=== PATIENT | female | born 1995 | race African-American/Black ===

== ENCOUNTER 2016-09-04 00:53 | Emergency (ER) | END 2016-09-04 02:47 | disposition left against medical advice (07) | LOC: EDSEX → ER 00:53 | DX: Z53.21 Procedure and treatment not carried out due to patient leaving prior to being seen by health care provider (principal) ==

== ENCOUNTER 2017-07-22 14:23 | Emergency (ER) | payer SELFPAY ==
[2017-07-22] MEDS ORDERED: KETOROLAC TROMETHAMINE INJ/PF 30 MG/1 ML SDV IV ONE (15:30)
[2017-07-22] MEDS ORDERED: NORMAL SALINE 1000 ML 1,000 ML IV ONE (15:30)
[2017-07-22] MEDS ORDERED: PROCHLORPERAZINE EDISYLATE INJ 10 MG/2 ML VIAL IV ONE (15:30)
[2017-07-22] MEDS ORDERED: DIPHENHYDRAMINE HCL 50 MG/ML VIAL IV ONE (15:30)
--- NOTE | 2017-07-22 15:32 | ER Document Report ---
ED Headache - General Chief Complaint: Headache Stated Complaint: HEADACHE,WEAKNESS Time Seen by Provider: 07/22/17 15:26 Mode of Arrival: Ambulatory Information source: Patient Notes: Patient presents complaining of left-sided headache pain that radiates to the back of her scalp. Patient states headache started yesterday and has gradually worsened today. Patient denies any fever, nausea or vomiting. Patient denies any change in vision. Patient does report photophobia. TRAVEL OUTSIDE OF THE [place] IN LAST 30 DAYS: No - HPI Patient complains to provider of: Headache Onset: Yesterday Onset was: Gradual Timing: Worse Quality of pain: Achy Pain Level: 5 Context: denies: Head injury Associated symptoms: Photophobia. denies: Chills, Confusion, Fever, Lightheaded , Nausea/vomiting, Speech problems, Stiff neck Exacerbated by: Light Similar symptoms previously: No Recently seen / treated by doctor: No - Related Data Allergies/Adverse Reactions: No Known Allergies Allergy (Unverified 09/04/16 01:12) Past Medical History - General Information source: Patient - Social History Smoking Status: Never Smoker Frequency of alcohol use: None Drug Abuse: None Occupation: none Lives with: Family Family History: Reviewed & Not Pertinent Patient has suicidal ideation: No Patient has homicidal ideation: No - Medical History Medical History: Other - anemia Neurological Medical History: Denies: Hx Migraine Renal/ Medical History: Denies: Hx Peritoneal Dialysis Surgical Hx: Negative Review of Systems - Review of Systems Constitutional: Malaise. denies: Fever, Recent illness EENT: No symptoms reported. denies: Blurred vision, Double vision Cardiovascular: No symptoms reported Respiratory: No symptoms reported. denies: Cough Gastrointestinal: No symptoms reported. denies: Nausea, Vomiting Genitourinary: No symptoms reported Female Genitourinary: No symptoms reported Musculoskeletal: No symptoms reported. denies: Back pain, Neck pain Skin: No symptoms reported. denies: Rash Hematologic/Lymphatic: No symptoms reported Neurological/Psychological: Headaches Physical Exam - Vital signs Vitals: Temp Pulse Resp BP Pulse Ox 98.3 F 89 16 117/67 100 07/22/17 14:37 07/22/17 14:37 07/22/17 14:37 07/22/17 14:37 07/22/17 14:37 - General General appearance: Appears well, Alert In distress: None - HEENT Head: Normocephalic, Atraumatic Eyes: Normal Conjunctiva: Normal Extraocular movements intact: Yes Eyelashes: Normal Pupils: PERRL Ears: Normal Nasal: Normal Mouth/Lips: Normal Mucous membranes: Normal Pharynx: Normal Neck: Normal, Supple. No: Lymphadenopathy, Meningismus, Neck mass - Respiratory Respiratory status: No respiratory distress Chest status: Nontender Breath sounds: Normal. No: Rales, Rhonchi, Stridor, Wheezing Chest palpation: Normal - Cardiovascular Rhythm: Regular Heart sounds: S1 appreciated, S2 appreciated Murmur: No - Back Back: Normal, Nontender - Extremities General upper extremity: Normal inspection, Normal ROM General lower extremity: Normal inspection, Normal ROM - Neurological Neuro grossly intact: Yes Cognition: Normal Orientation: AAOx4 Kandice Coma Scale Eye Opening: Spontaneous Kandice Coma Scale Verbal: Oriented Theriot Coma Scale Motor: Obeys Commands Kandice Coma Scale Total: 15 Speech: Normal Cranial nerves: Normal. No: Facial palsy Cerebellar coordination: Normal Motor strength normal: LUE, RUE, LLE, RLE - Psychological Associated symptoms: Normal affect, Normal mood - Skin Skin Temperature: Warm Skin Moisture: Dry Skin Color: Normal Course - Re-evaluation Re-evalutation: 07/22/17 17:49 Patient sleeping, arouses easily to voice. Patient states headache pain is resolved. - Vital Signs Vital signs: Temp Pulse Resp BP Pulse Ox 98.3 F 96 16 105/61 100 07/22/17 14:37 07/22/17 18:29 07/22/17 18:29 07/22/17 18:29 07/22/17 18:29 - Laboratory Result Diagrams: 07/22/17 16:50 Laboratory results interpreted by me: 07/22/17 16:50 RBC 5.42 H MCV 70 L MCH 22.5 L RDW 14.8 H Labs- Entire Visit 07/22/17 16:50 WBC 6.0 RBC 5.42 H Hgb 12.2 Hct 38.1 MCV 70 L MCH 22.5 L MCHC 32.0 RDW 14.8 H Plt Count 318 Seg Neutrophils % 53.6 Lymphocytes % 35.3 Monocytes % 7.7 Eosinophils % 2.7 Basophils % 0.7 Absolute Neutrophils 3.2 Absolute Lymphocytes 2.1 Absolute Monocytes 0.5 Absolute Eosinophils 0.2 Absolute Basophils 0.0 Discharge - Discharge Clinical Impression: Headache Qualifiers: Headache type: unspecified Headache chronicity pattern: acute headache Intractability: not intractable Qualified Code(s): R51 - Headache Condition: Stable Disposition: HOME, SELF-CARE Instructions: Intravenous Compazine for Headaches ([facility]), Use of Diphenhydramine , Headache ([facility]), Toradol Injection ([facility]) Additional Instructions: Return immediately for any new or worsening symptoms Followup with your primary care provider, call tomorrow to make a followup appointment Referrals: [facility] [Provider Group] - Follow up as needed
[2017-07-22 17:15] LABS: ABSOLUTE EOSINOPHILS # (AUTO) 0.2 10^3/uL (0.0-0.6); ABSOLUTE LYMPHOCYTES (AUTO) 2.1 10^3/uL (0.5-4.7); ABSOLUTE MONOCYTES (AUTO) 0.5 10^3/uL (0.1-1.4); ABSOLUTE NEUT (AUTO) 3.2 10^3/uL (1.7-8.2); BASOPHILS % (AUTO) 0.7 % (0-2); EOSINOPHILS % (AUTO) 2.7 % (0-6); HEMATOCRIT 38.1 % (36.0-47.0); HEMOGLOBIN 12.2 g/dL (12.0-15.5); HGB HCT DIFFERENCE -1.5; LYMPHOCYTES % (AUTO) 35.3 % (13-45); MEAN CORPUSCULAR HEMOGLOBIN 22.5 pg (27.0-33.4); MEAN CORPUSCULAR VOLUME 70 fl (80-97); MONOCYTES % (AUTO) 7.7 % (3-13); RED BLOOD COUNT 5.42 10^6/uL (3.72-5.28); RED CELL DISTRIBUTION WIDTH 14.8 % (11.5-14.0); SEGMENTED NEUTROPHILS % (AUTO) 53.6 % (42-78)
[2017-07-22 18:30] VITALS: BP 105/61
== END 2017-07-22 18:39 | disposition home or self-care (01) ==
LOC: ER 14:23
DX: R51 Headache (principal); R53.1 Weakness
CPT/HCPCS: 99284; 96361; 96374; 96375; 36415; 85025; J1200; J1885; J0780; J7030

== ENCOUNTER 2017-10-30 23:27 | Emergency (ER) | payer SELFPAY ==
[2017-10-31 00:46] LABS: ABSOLUTE LYMPHOCYTES (AUTO) 0.6 10^3/uL (0.5-4.7); ABSOLUTE MONOCYTES (AUTO) 0.5 10^3/uL (0.1-1.4); ABSOLUTE NEUT (AUTO) 10.6 10^3/uL (1.7-8.2); BASOPHILS % (AUTO) 0.3 % (0-2); EOSINOPHILS % (AUTO) 0.2 % (0-6); HEMATOCRIT 37.9 % (36.0-47.0); HEMOGLOBIN 11.9 g/dL (12.0-15.5); LYMPHOCYTES % (AUTO) 5.1 % (13-45); MEAN CORPUSCULAR HEMOGLOBIN 22.2 pg (27.0-33.4); MEAN CORPUSCULAR HGB CONC 31.3 g/dL (32.0-36.0); MEAN CORPUSCULAR VOLUME 71 fl (80-97); PLATELET COUNT 302 10^3/uL (150-450); RED BLOOD COUNT 5.34 10^6/uL (3.72-5.28); RED CELL DISTRIBUTION WIDTH 14.2 % (11.5-14.0); SEGMENTED NEUTROPHILS % (AUTO) 90.4 % (42-78); TOTAL CELLS COUNTED % (AUTO) 100 %; WHITE BLOOD COUNT 11.7 10^3/uL (4.0-10.5)
[2017-10-31 01:05] LABS: ALANINE AMINOTRANSFERASE 17 U/L (9-52); ALBUMIN 4.3 g/dL (3.5-5.0); ALKALINE PHOSPHATASE 105 U/L (38-126); ANION GAP 10 (5-19); ASPARTATE AMINO TRANSFERASE 23 U/L (14-36); BILIRUBIN,DIRECT 0.4 mg/dL (0.0-0.4); BLOOD UREA NITROGEN 10 mg/dL (7-20); CALCIUM 9.8 mg/dL (8.4-10.2); CARBON DIOXIDE 24 mmol/L (22-30); CHLORIDE 109 mmol/L (98-107); GLUCOSE 107 mg/dL (75-110); LIPASE 75.2 U/L (23-300); POTASSIUM 4.2 mmol/L (3.6-5.0); SODIUM 143.4 mmol/L (137-145); TOTAL PROTEIN 7.5 g/dL (6.3-8.2)
[2017-10-31 01:11] LABS: APPEARANCE,URINE SLIGHTLY-CLOUDY; BILIRUBIN,URINE NEGATIVE (NEGATIVE); COLOR,URINE YELLOW; GLUCOSE, URINE NEGATIVE (NEGATIVE); KETONES,URINE TRACE mg/dL (NEGATIVE); LEUKOCYTE ESTERASE,URINE NEGATIVE (NEGATIVE); NITRITE,URINE NEGATIVE (NEGATIVE); PROTEIN,URINE NEGATIVE (NEGATIVE); URINE SPECIFIC GRAVITY 1.029; UROBILINOGEN,URINE NEGATIVE mg/dL (<2.0)
[2017-10-31] MEDS ORDERED: ONDANSETRON HCL INJ/PF 4 MG/2 ML SDV IV ONE (02:18)
[2017-10-31] MEDS ORDERED: NORMAL SALINE 1000 ML 1,000 ML IV ONE (02:18)
[2017-10-31] MEDS ORDERED: CEFTRIAXONE 1 GM/D5W RTU 1 GM/50 ML RTUPB IV ONE (02:18)
[2017-10-31] MEDS ORDERED: KETOROLAC TROMETHAMINE INJ/PF 30 MG/1 ML SDV IV ONE (02:18)
--- NOTE | 2017-10-31 02:31 | ER Document Report ---
ED General - General Chief Complaint: Nausea/Vomiting/ abdominal pain Stated Complaint: LOWER ABDOMINAL PAIN Time Seen by Provider: 10/31/17 02:08 Mode of Arrival: Ambulatory Information source: Patient TRAVEL OUTSIDE OF THE [place] IN LAST 30 DAYS: No - HPI Notes: Patient is a 22-year-old female presents to the emergency department with report of a one-week history of vaginal discharge and mild dysuria and frequency. She now reports some nausea and vomiting related to the discomfort. She denies any fever or cough or congestion or constipation or diarrhea, but she does report some mild back pain. - Related Data Allergies/Adverse Reactions: No Known Allergies Allergy (Unverified 09/04/16 01:12) Past Medical History - General Information source: Patient - Social History Smoking Status: Never Smoker Chew tobacco use (# tins/day): No Frequency of alcohol use: None Drug Abuse: None Lives with: Family Family History: Reviewed & Not Pertinent Patient has suicidal ideation: No Patient has homicidal ideation: No Neurological Medical History: Denies: Hx Migraine Renal/ Medical History: Denies: Hx Peritoneal Dialysis Review of Systems - Review of Systems Notes: REVIEW OF SYSTEMS: CONSTITUTIONAL : Denies fever, chills, or sweats. Denies recent illness. EENT: Denies eye, ear, throat, or mouth pain or symptoms. Denies nasal or sinus congestion or discharge. Denies throat, tongue, or mouth swelling or difficulty swallowing. CARDIOVASCULAR: Denies chest pain. Denies palpitations or racing or irregular heart beat. Denies ankle edema. RESPIRATORY: Denies cough, cold, or chest congestion. Denies shortness of breath, difficulty breathing, or wheezing. GASTROINTESTINAL: Denies abdominal distention. Denies diarrhea. Denies blood in vomitus, stools, or per rectum. Denies black, tarry stools. Denies constipation. GENITOURINARY: Reports urinary urgency and frequency and mild vaginal discharge. FEMALE GENITOURINARY: Denies vaginal bleeding, heavy or abnormal periods, irregular periods. MUSCULOSKELETAL: Denies back or neck pain or stiffness. Denies joint pain or swelling. SKIN: Denies rash, lesions or sores. HEMATOLOGIC : Denies easy bruising or bleeding. LYMPHATIC: Denies swollen, enlarged glands. NEUROLOGICAL: Denies confusion or altered mental status. Denies passing out or loss of consciousness. Denies dizziness or lightheadedness. Denies headache. Denies weakness or paralysis or loss of use of either side. Denies problems with gait or speech. Denies sensory loss, numbness, or tingling. Denies seizures. PSYCHIATRIC: Denies anxiety or stress. Denies depression, suicidal ideation, or homicidal ideation. ALL OTHER SYSTEMS REVIEWED AND NEGATIVE. Dictation was performed using [employer] voice recognition software Physical Exam - Vital signs Vitals: Temp Pulse Resp BP Pulse Ox 97.7 F 86 20 105/70 100 10/30/17 23:37 10/30/17 23:37 10/30/17 23:37 10/30/17 23:37 10/30/17 23:37 - Notes Notes: PHYSICAL EXAMINATION: GENERAL: Well-appearing, well-nourished and in no acute distress. HEAD: Atraumatic, normocephalic. EYES: Pupils equal round and reactive to light, extraocular movements intact, conjunctiva are normal. ENT: Nares patent, oropharynx clear without exudates. Moist mucous membranes. NECK: Normal range of motion, supple without lymphadenopathy LUNGS: Breath sounds clear to auscultation bilaterally and equal. No wheezes rales or rhonchi. HEART: Regular rate and rhythm without murmurs ABDOMEN: Soft, nondistended abdomen. No guarding, no rebound. No masses appreciated. Tender through the suprapubic region. Female : Very minimal clear discharge. The patient does have mild cervical motion tenderness. Cervix is otherwise benign. There is no adnexal mass or tenderness noted. Musculoskeletal: Normal range of motion, no pitting or edema. No cyanosis. NEUROLOGICAL: Cranial nerves grossly intact. Normal speech, normal gait. Normal sensory, motor exams PSYCH: Normal mood, normal affect. SKIN: Warm, Dry, normal turgor, no rashes or lesions noted. Course - Re-evaluation Re-evalutation: 10/31/17 07:34 Patient was given Rocephin IV for UTI and coverage for PID. Gonorrhea and chlamydial studies were sent. Urine culture was sent. No evidence for anemia or clinical suggestion for appendicitis or diverticulitis or GI bleed or sepsis. - Vital Signs Vital signs: Temp Pulse Resp BP Pulse Ox 97.7 F 94 18 108/67 100 10/30/17 23:37 10/31/17 04:14 10/31/17 06:01 10/31/17 06:01 10/31/17 06:01 - Laboratory Result Diagrams: 10/31/17 00:25 10/31/17 00:25 Laboratory results interpreted by me: 10/31/17 10/31/17 10/31/17 00:20 00:25 00:25 WBC 11.7 H RBC 5.34 H Hgb 11.9 L MCV 71 L MCH 22.2 L MCHC 31.3 L RDW 14.2 H Seg Neutrophils % 90.4 H Lymphocytes % 5.1 L Absolute Neutrophils 10.6 H Chloride 109 H Urine Ketones TRACE H Discharge - Discharge Clinical Impression: PID (acute pelvic inflammatory disease) Urinary tract infection Qualifiers: Urinary tract infection type: site unspecified Hematuria presence: without hematuria Qualified Code(s): N39.0 - Urinary tract infection, site not specified Condition: Stable Disposition: HOME, SELF-CARE Instructions: Pelvic Inflammatory Disease ([facility]), Trimethoprim-Sulfa ([facility]), Urinary Tract Infection ([facility]) Additional Instructions: Return to the emergency department case of fever, uncontrolled vomiting or severe pain. Prescriptions: Tramadol HCl [Ultram 50 mg Tablet] 50 mg PO Q4HP PRN #20 tab PRN Reason: Ondansetron [Zofran Odt 4 mg Tablet] 1 tab PO Q8HP PRN #10 tab.rapdis PRN Reason: For Nausea/Vomiting Doxycycline Hyclate 100 mg PO BID #20 capsule Sulfamethoxazole/Trimethoprim [Bactrim Ds Tablet] 1 each PO BID #16 tablet Forms: Return to Work, Treatment of Relative/Child Referrals: DAWN DELACRUZ MD [ACTIVE STAFF] - Follow up as needed
[2017-10-31] MEDS ORDERED: CEFTRIAXONE INJ 1000 MG VIAL ONE (02:51)
[2017-10-31 04:35] LABS: T.VAGINALIS (WET MOUNT) NO TRICHOMONAS SEEN; WBCS (WET MOUNT) RARE WBCS SEEN; YEAST (WET MOUNT) NO YEAST SEEN
[2017-10-31 06:05] LABS: CHLAM PCR NOT DETECTED (NOT DETECT); GON PCR NOT DETECTED (NOT DETECT)
[2017-10-31 06:48] VITALS: BP 108/67
== END 2017-10-31 06:48 | disposition home or self-care (01) ==
LOC: ER 23:27
DX: N73.9 Female pelvic inflammatory disease, unspecified (principal); N39.0 Urinary tract infection, site not specified; R11.2 Nausea with vomiting, unspecified; R30.0 Dysuria; R35.0 Frequency of micturition; R39.15 Urgency of urination
CPT/HCPCS: 99284; 96361; 96375; 96365; 36415; 87086; 87210; 83690; 85025; 81025; 80053; 81001; 87491; 87591; J1885; J2405; J7030; J0696

== ENCOUNTER 2018-01-10 19:57 | Emergency (ER) | payer SELFPAY ==
[2018-01-10 20:05] VITALS: BP 109/74
--- NOTE | 2018-01-10 22:24 | ER Document Report ---
ED Extremity Problem, Upper - General Chief Complaint: Arm Pain Stated Complaint: HAND PAIN Time Seen by Provider: 01/10/18 21:57 Mode of Arrival: Ambulatory Information source: Patient Notes: 22-year-old female presents emergency department for evaluation of left arm pain that started today. Patient reports that she has a burning sensation that radiates down into her hand and into her ring and middle finger. She also reports that it radiates up into her elbow. She denies any injury or trauma. She reports that it is sensitive to cold. She denied any fever, chest pain, shortness of breath, abdominal pain, nausea, vomiting, diarrhea, dysuria, or hematuria. TRAVEL OUTSIDE OF THE [place] IN LAST 30 DAYS: No - Related Data Allergies/Adverse Reactions: No Known Allergies Allergy (Verified 11/28/17 14:58) Past Medical History - General Information source: Patient - Social History Smoking Status: Never Smoker Frequency of alcohol use: Rare Drug Abuse: None Family History: Reviewed & Not Pertinent Patient has suicidal ideation: No Patient has homicidal ideation: No Neurological Medical History: Denies: Hx Migraine Renal/ Medical History: Denies: Hx Peritoneal Dialysis Past Surgical History: Reports: Hx Section Physical Exam - Vital signs Vitals: Temp Pulse Resp BP Pulse Ox 99.0 F 90 18 109/74 100 01/10/18 20:03 01/10/18 20:03 01/10/18 20:03 01/10/18 20:03 01/10/18 20:03 - Notes Notes: PHYSICAL EXAMINATION: GENERAL: Well-appearing, well-nourished and in no acute distress. HEAD: Atraumatic, normocephalic. Musculoskeletal: Left arm: Mild tenderness with no gross deformity, ecchymosis, erythema, or hot to the touch. Positive Tinel and Phalen sign. Drinks 5\5. Strong radial pulse with brisk capillary refill. Light sensation intact. Distal neurovascular intact. NEUROLOGICAL: No gait, balance, speech, and facial symmetry. PSYCH: Normal mood, normal affect. SKIN: Warm, Dry, normal turgor, no rashes or lesions noted. Course - Re-evaluation Re-evalutation: 01/10/18 22:53 Patient presented to emergency department for evaluation of left arm pain. 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 No evidence of fracture or infection. The likelihood of other entities in the differential is insufficient to justify any further testing for them. Discussed care plan at length with patient. Any and all questions were answered. Discharged home with Motrin. Advised patient to follow-up with her primary care provider to take medications as instructed. I also advised her to return immediately to the emergency department for any new , worsening, or concerning symptoms as discussed. She understands and agrees with plan. - Vital Signs Vital signs: Temp Pulse Resp BP Pulse Ox 99.0 F 90 18 109/74 100 01/10/18 20:03 01/10/18 20:03 01/10/18 20:03 01/10/18 20:03 01/10/18 20:03 Discharge - Discharge Clinical Impression: Carpal tunnel syndrome of left wrist Condition: Good Disposition: HOME, SELF-CARE Instructions: Family Physicians / Practices Additional Instructions: Please follow-up with your PCP and take medications as instructed. Return immediately to the emergency department for any new, worsening, concerning symptoms as discussed. Prescriptions: Ibuprofen [Motrin 600 Mg Tablet] 600 mg PO TID #15 tablet
== END 2018-01-10 22:30 | disposition home or self-care (01) ==
LOC: ER 19:57
DX: G56.02 Carpal tunnel syndrome, left upper limb (principal)
CPT/HCPCS: 99283

== ENCOUNTER 2018-04-13 09:26 | Emergency (ER) | payer SELFPAY ==
[2018-04-13 09:32] VITALS: BP 110/74
--- NOTE | 2018-04-13 09:50 | ER Document Report ---
ED General - General Chief Complaint: Vag Bleeding, +preg <12wks Stated Complaint: VAGINAL BLEEDING Time Seen by Provider: 04/13/18 09:40 Mode of Arrival: Ambulatory Information source: Patient, [facility] Records Notes: 22-year-old female with no reported past medical history presents with complaint of vaginal bleeding. Patient states that 2 days prior to arrival she took a home test which was positive. This would make the patient A1. Last menstrual period was March 18. She describes some dark scant bleeding and mild pelvic pain. She denies any nausea, vomiting, chest pain, shortness of breath, passing of clots or tissue. She takes no medications at this time. She denies any smoking, alcohol use or illicit drug use. TRAVEL OUTSIDE OF THE [place] IN LAST 30 DAYS: No - HPI Onset: This morning Onset/Duration: Gradual Quality of pain: Achy Severity: Mild Associated symptoms: denies: Diarrhea, Nausea, Vomiting, Shortness of breath Exacerbated by: Denies Relieved by: Denies Similar symptoms previously: Yes Recently seen / treated by doctor: No - Related Data Allergies/Adverse Reactions: No Known Allergies Allergy (Verified 04/13/18 09:28) Past Medical History - General Information source: Patient, [facility] Records - Social History Smoking Status: Never Smoker Frequency of alcohol use: None Drug Abuse: None Lives with: Family Family History: Reviewed & Not Pertinent Patient has suicidal ideation: No Patient has homicidal ideation: No - Medical History Medical History: Negative Neurological Medical History: Denies: Hx Migraine Renal/ Medical History: Denies: Hx Peritoneal Dialysis Past Surgical History: Reports: Hx Section Review of Systems - Review of Systems Notes: REVIEW OF SYSTEMS: CONSTITUTIONAL : Denies fever, chills, or sweats. Denies recent illness. Denies weight loss, recent hospitalizations. EENT: Denies visual changes, eye pain. Denies nasal or sinus congestion or discharge. Denies sore throat, oral lesions, difficulty swallowing. CARDIOVASCULAR: Denies chest pain. Denies palpitations. Denies lower extremity edema. RESPIRATORY: Denies cough, cold, or chest congestion. Denies shortness of breath, wheezing. GASTROINTESTINAL: Denies abdominal pain or distention. Denies nausea, vomiting , or diarrhea. Denies blood in vomitus, stools, or per rectum. Denies black, tarry stools. Denies constipation. GENITOURINARY: Denies difficulty urinating, painful urination, frequency, blood in urine, or vaginal discharge. MUSCULOSKELETAL: Denies back or neck pain or stiffness. Denies joint pain or swelling. SKIN: Denies rash, lesions or sores. HEMATOLOGIC : Denies easy bruising or bleeding. LYMPHATIC: Denies swollen glands. NEUROLOGICAL: Denies confusion or altered mental status. Denies passing out or loss of consciousness. Denies dizziness or lightheadedness. Denies headache. Denies weakness or paralysis. Denies problems difficulty with ambulation, slurred speech. Denies sensory loss, numbness, or tingling. Denies seizures. PSYCHIATRIC: Denies anxiety or stress. Denies depression, suicidal ideation, or homicidal ideation. Denies visual or auditory hallucinations. PHYSICAL EXAMINATION: GENERAL: Well-appearing, well-nourished and in no acute distress. HEAD: Atraumatic, normocephalic. EYES: Pupils equal round and reactive to light, extraocular movements intact, conjunctiva are normal. ENT: Nares patent, oropharynx clear without exudates. Moist mucous membranes. NECK: Normal range of motion, supple without lymphadenopathy LUNGS: Breath sounds clear to auscultation bilaterally and equal. No wheezes rales or rhonchi. HEART: Regular rate and rhythm without murmurs ABDOMEN: Soft, nontender, nondistended abdomen. No guarding, no rebound. No masses appreciated. Female : No external vaginal lesions, moderate vaginal bleeding, Os open. Musculoskeletal: Normal range of motion, no pitting or edema. No cyanosis. NEUROLOGICAL: Cranial nerves grossly intact. Normal speech, normal gait. Normal sensory, motor exams PSYCH: Normal mood, normal affect. SKIN: Warm, Dry, normal turgor, no rashes or lesions noted. Physical Exam - Vital signs Vitals: Temp Pulse Resp BP Pulse Ox 98.7 F 93 16 110/74 100 04/13/18 09:31 04/13/18 09:31 04/13/18 09:31 04/13/18 09:31 04/13/18 09:31 Course - Re-evaluation Re-evalutation: Laboratory 04/13/18 04/13/18 04/13/18 09:49 09:56 10:11 Beta HCG, Quant < 2.39 Total Beta HCG NEGATIVE Urine Color YELLOW Urine Appearance CLOUDY Urine pH 5.0 Ur Specific [place] 1.026 Urine Protein 30 H Urine Glucose (UA) NEGATIVE Urine Ketones NEGATIVE Urine Blood LARGE H Urine Nitrite NEGATIVE Urine Bilirubin NEGATIVE Urine Urobilinogen 2.0 H Ur Leukocyte Esterase NEGATIVE Urine WBC (Auto) 9 Urine RBC (Auto) >182 Urine Bacteria (Auto) TRACE Squamous Epi Cells Auto 9 Urine Mucus (Auto) MANY Urine Ascorbic Acid NEGATIVE Urine HCG, Qual NEGATIVE Epi Cells (Wet Prep) 3+ EPITHELIALS SEEN Bacteria (Wet Prep) 3+ BACTERIA SEEN Trichomonas (Wet Prep) NO TRICHOMONAS SEEN Vaginal WBC 1+ WBCS SEEN Vaginal RBC 4+ RBCS SEEN Vaginal Yeast NO YEAST SEEN 04/13/18 11:19 22-year-old female with no reported past medical history presents with complaint of vaginal bleeding. Patient states that 2 days prior to arrival she took a home test which was positive. This would make the patient A1. Last menstrual period was March 18. She describes some dark scant bleeding and mild pelvic pain. She denies any nausea, vomiting, chest pain, shortness of breath, passing of clots or tissue. Patient was seen by myself upon arrival. Vital signs were reviewed. Patient is afebrile, normotensive and not hypoxic. Patient does not appear toxic or dehydrated. They are in no acute distress. Previous medical records and nursing notes reviewed. Significant findings include vaginal bleeding, negative test. Patient was found to have bacterial vaginosis. She did receive her first dose of Flagyl in the department. She will be provided a prescription for Flagyl. - Vital Signs Vital signs: Temp Pulse Resp BP Pulse Ox 98.7 F 93 16 110/74 100 04/13/18 09:31 04/13/18 09:31 04/13/18 09:31 04/13/18 09:31 04/13/18 09:31 - Laboratory Laboratory results interpreted by nc: 04/13/18 09:49 Urine Protein 30 H Urine Blood LARGE H Urine Urobilinogen 2.0 H Discharge - Discharge Clinical Impression: Vaginal bleeding, Bacterial vaginosis, Pelvic pain Condition: Good Disposition: HOME, SELF-CARE Instructions: Vaginosis, Bacterial ([facility]), Vaginal Bleeding ([facility]) Additional Instructions: Your test through urine and blood are negative today. He were found to have bacterial vaginosis which is not a sexually transmitted disease but does require treatment. Please complete your Flagyl course of 7 days. Please do not drink alcohol with this medication as it will cause severe abdominal pain. Prescriptions: Metronidazole [Flagyl 500 mg Tablet] 500 mg PO BID #14 tablet Referrals: TARA THOMAS MD [Primary Care Provider] - Follow up as needed
[2018-04-13 10:27] LABS: BACTERIA (WET MOUNT) 3+ BACTERIA SEEN; EPITHELIALS (WET MOUNT) 3+ EPITHELIALS SEEN; RBCS (WET MOUNT) 4+ RBCS SEEN; T.VAGINALIS (WET MOUNT) NO TRICHOMONAS SEEN; WBCS (WET MOUNT) 1+ WBCS SEEN; YEAST (WET MOUNT) NO YEAST SEEN
[2018-04-13 10:33] LABS: APPEARANCE,URINE CLOUDY; BILIRUBIN,URINE NEGATIVE (NEGATIVE); COLOR,URINE YELLOW; GLUCOSE, URINE NEGATIVE (NEGATIVE); KETONES,URINE NEGATIVE (NEGATIVE); LEUKOCYTE ESTERASE,URINE NEGATIVE (NEGATIVE); NITRITE,URINE NEGATIVE (NEGATIVE); PROTEIN,URINE 30 mg/dL (NEGATIVE); URINE SPECIFIC GRAVITY 1.026
[2018-04-13] MEDS ORDERED: METRONIDAZOLE 500 MG TABLET PO ONE (11:19)
[2018-04-13 11:50] LABS: CHLAM PCR NOT DETECTED (NOT DETECT); GON PCR NOT DETECTED (NOT DETECT)
== END 2018-04-13 11:29 | disposition home or self-care (01) ==
LOC: ER 09:26
DX: N76.0 Acute vaginitis (principal); B96.89 Other specified bacterial agents as the cause of diseases classified elsewhere; R10.2 Pelvic and perineal pain; N93.8 Other specified abnormal uterine and vaginal bleeding
CPT/HCPCS: 36415; 81001; 81025; 84702; 87210; 87491; 87591; 99284

== ENCOUNTER 2018-06-19 21:14 | Emergency (ER) | payer OTHER ==
[2018-06-19 21:19] VITALS: BP 114/67
--- NOTE | 2018-06-19 22:20 | ER Document Report ---
ED General - General Chief Complaint: Lower Abdominal Pain Stated Complaint: ABDOMINAL PAINS Time Seen by Provider: 06/19/18 22:03 Notes: Patient is a pleasant 22-year-old female presents with complaints of some intermittent sharp pain in her lower abdomen. Patient says she has had some urinary frequency and foul-smelling odor to her urine. She says that she is concerned because her menstrual period came late. She says the period only lasted 2 days. She says it is very light. She did take a test about 3 days ago and it was negative. She denies any abnormal vaginal discharge. No fevers. No vomiting. Some nausea. No diarrhea. No other complaints at this time. TRAVEL OUTSIDE OF THE [place] IN LAST 30 DAYS: No - Related Data Allergies/Adverse Reactions: No Known Allergies Allergy (Verified 04/13/18 09:28) Past Medical History - Social History Smoking Status: Never Smoker Frequency of alcohol use: None Drug Abuse: None Family History: Reviewed & Not Pertinent Patient has suicidal ideation: No Patient has homicidal ideation: No Neurological Medical History: Denies: Hx Migraine Renal/ Medical History: Denies: Hx Peritoneal Dialysis Past Surgical History: Reports: Hx Section Review of Systems - Review of Systems Notes: My Normal Review Basic REVIEW OF SYSTEMS: CONSTITUTIONAL : Denies fever, chills, or sweats. Denies recent illness. RESPIRATORY: Denies cough, cold, or chest congestion. Denies shortness of breath, difficulty breathing, or wheezing. GASTROINTESTINAL: Crampy suprapubic abdominal pain. Some nausea. No vomiting. GENITOURINARY: Some urinary frequency and foul-smelling odor to urine. FEMALE GENITOURINARY: Denies vaginal bleeding, abnormal or irregular periods. LMP: Menstrual period was late. MUSCULOSKELETAL: Denies neck or back pain or joint pain or swelling. SKIN: Denies rash or skin lesions. NEUROLOGICAL: Denies altered mental status or loss of consciousness. Denies headache. Denies weakness or paralysis or loss of use of either side. Denies problems with gait or speech. Denies sensory or motor loss. ALL OTHER SYSTEMS REVIEWED AND NEGATIVE. Physical Exam - Vital signs Vitals: Temp Pulse Resp BP Pulse Ox 98.8 F 99 16 114/67 99 06/19/18 21:18 06/19/18 21:18 06/19/18 21:18 06/19/18 21:18 06/19/18 21:18 - Notes Notes: General Appearance: Well nourished, alert, cooperative, no acute distress, no obvious discomfort. Ill-appearing. Vitals: reviewed, See vital signs table. Eyes: PERRL, EOMI, Conjuctiva clear Lungs: No wheezing, No rales, No rhonci, No accessory muscle use, good air exchange bilaterally. Heart: Normal rate, Regular rythm, No murmur, no rub Abdomen: Normal BS, soft, No rigidity, mild diffuse abdominal tenderness to palpation., No guarding, no rebound, no abdominal masses, no organomegaly Pelvic exam: Pelvic exam performed with female metal storage worker, Vy WEINER, at bedside. Patient has normal external genitalia. No abnormal vaginal discharge. No abnormal pain on exam. Patient does have some blood in vaginal vault. Neuro: speech clear, oriented x 3, normal affect, responds appropriately to questions. Course - Re-evaluation Re-evalutation: 06/21/18 07:44 I suspect patient's pain was likely is related to her abnormal menstrual period. She had a very short delayed period. Now she started having some vaginal bleeding on pelvic exam and she is having a recurrent sharp pains. She has no signs of UTI on urinalysis. Her pelvic swabs are negative. She looks well. I feel she is safe to be discharged home. Strongly encouraged her return to ER if she has worsening of her symptoms, heavy bleeding, fevers, vomiting, or feels unwell. Patient agrees with plan and will be discharged home. Dictation of this chart was performed using voice recognition software; therefore, there may be some unintended grammatical errors. - Vital Signs Vital signs: Temp Pulse Resp BP Pulse Ox 98.8 F 72 17 114/67 99 06/19/18 21:18 06/19/18 23:51 06/19/18 23:51 06/19/18 21:18 06/19/18 23:51 - Laboratory Laboratory results interpreted by me: 06/19/18 22:05 Urine Blood MODERATE H Urine Urobilinogen 4.0 H Discharge - Discharge Clinical Impression: Abdominal pain Qualifiers: Abdominal location: lower abdomen, unspecified Qualified Code(s): R10.30 - Lower abdominal pain, unspecified Condition: Good Disposition: HOME, SELF-CARE Additional Instructions: Please take Ibuprofen 600mg with food every 6 hours for the pain. Please return to the ER immediately if you have worsening pain, fevers, vomiting, heavy vaginal bleeding or feel unwell. You Gonorrhea and Chlamydia swabs are pending. They should be back in 24 hours. If they are positive we will khoa you. You can call [phone] to get your results if you do not hear back from us. Forms: Return to School Referrals: TARA THOMAS MD [ACTIVE STAFF] - Follow up in 3-5 days
[2018-06-19 22:26] LABS: APPEARANCE,URINE SLIGHTLY-CLOUDY; BILIRUBIN,URINE NEGATIVE (NEGATIVE); COLOR,URINE YELLOW; GLUCOSE, URINE NEGATIVE (NEGATIVE); KETONES,URINE NEGATIVE (NEGATIVE); LEUKOCYTE ESTERASE,URINE NEGATIVE (NEGATIVE); NITRITE,URINE NEGATIVE (NEGATIVE); PROTEIN,URINE NEGATIVE (NEGATIVE); URINE SPECIFIC GRAVITY 1.023
[2018-06-19 23:37] LABS: EPITHELIALS (WET MOUNT) 3+ EPITHELIALS SEEN; T.VAGINALIS (WET MOUNT) NO TRICHOMONAS SEEN; WBCS (WET MOUNT) 2+ WBCS SEEN; YEAST (WET MOUNT) NO YEAST SEEN
[2018-06-20 00:57] LABS: CHLAM PCR NOT DETECTED (NOT DETECT); GON PCR NOT DETECTED (NOT DETECT)
== END 2018-06-19 23:51 | disposition home or self-care (01) ==
LOC: ER 21:14
DX: R10.30 Lower abdominal pain, unspecified (principal); N91.0 Primary amenorrhea; R10.817 Generalized abdominal tenderness; R35.0 Frequency of micturition; R39.89 Other symptoms and signs involving the genitourinary system; R11.0 Nausea
CPT/HCPCS: 81001; 81025; 87210; 87491; 87591; 99284

== ENCOUNTER 2018-12-10 18:06 | Emergency (ER) | payer OTHER ==
[2018-12-10] MEDS ORDERED: ACETAMINOPHEN 325 MG TABLET PO ONE (20:17)
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
[2018-12-10 20:35] VITALS: BP 107/70
== END 2018-12-10 20:35 | disposition home or self-care (01) ==
LOC: ER 18:06
DX: R07.81 Pleurodynia (principal); V87.7XXA Person injured in collision between other specified motor vehicles (traffic), initial encounter; Z79.899 Other long term (current) drug therapy; F17.200 Nicotine dependence, unspecified, uncomplicated
CPT/HCPCS: 99283

== ENCOUNTER 2019-01-09 19:10 | Emergency (ER) | payer MEDICAID, OTHER ==
[2019-01-09 19:43] VITALS: BP 111/68
--- NOTE | 2019-01-09 20:37 | ER Document Report ---
ED Medical Screen (RME) - General Chief Complaint: Vag Bleeding, +preg <12wks Stated Complaint: VAGINAL BLEEDING Time Seen by Provider: 01/09/19 20:29 Notes: 23 year old female, at 8 weeks gestation by LMP, chief complaint of vaginal bleeding that started earlier today. Reports mild cramping on the right side and in the flank. Bleeding has slowed, cramping is mild. Denies trauma or other complaints. TRAVEL OUTSIDE OF THE [place] IN LAST 30 DAYS: No - Related Data Allergies/Adverse Reactions: No Known Allergies Allergy (Verified 12/10/18 18:45) Past Medical History - General Last Menstrual Period: 11/11/18 - Social History Chew tobacco use (# tins/day): No Frequency of alcohol use: None Drug Abuse: None Neurological Medical History: Denies: Hx Migraine Renal/ Medical History: Denies: Hx Peritoneal Dialysis Past Surgical History: Reports: Hx Section - x1 Physical Exam - Vital signs Vitals: Temp Pulse Resp BP Pulse Ox 99.1 F 81 20 111/68 100 01/09/19 19:42 01/09/19 19:42 01/09/19 19:42 01/09/19 19:42 01/09/19 19:42 - General General appearance: Appears well In distress: None - Abdominal Tenderness: Other - Complains with general palpation of the lower abdomen, no rigidity or guarding, exam limited by sitting position Course - Re-evaluation Re-evalutation: I have greeted and performed a rapid initial assessment of this patient. A comprehensive ED assessment and evaluation of the patient, analysis of test results and completion of the medical decision making process will be conducted by additional ED providers. - Vital Signs Vital signs: Temp Pulse Resp BP Pulse Ox 99.1 F 81 20 111/68 100 01/09/19 19:42 01/09/19 19:42 01/09/19 19:42 01/09/19 19:42 01/09/19 19:42
[2019-01-09 21:47] LABS: ABSOLUTE EOSINOPHILS # (AUTO) 0.1 10^3/uL (0.0-0.6); ABSOLUTE LYMPHOCYTES (AUTO) 2.5 10^3/uL (0.5-4.7); ABSOLUTE MONOCYTES (AUTO) 0.5 10^3/uL (0.1-1.4); ABSOLUTE NEUT (AUTO) 3.9 10^3/uL (1.7-8.2); BASOPHILS % (AUTO) 0.6 % (0-2); HEMATOCRIT 35.7 % (36.0-47.0); HEMOGLOBIN 11.5 g/dL (12.0-15.5); LYMPHOCYTES % (AUTO) 35.7 % (13-45); MEAN CORPUSCULAR HGB CONC 32.1 g/dL (32.0-36.0); MEAN CORPUSCULAR VOLUME 72 fl (80-97); MONOCYTES % (AUTO) 7.6 % (3-13); PLATELET COUNT 320 10^3/uL (150-450); RED BLOOD COUNT 4.99 10^6/uL (3.72-5.28); RED CELL DISTRIBUTION WIDTH 14.9 % (11.5-14.0); SEGMENTED NEUTROPHILS % (AUTO) 55.1 % (42-78); TOTAL CELLS COUNTED % (AUTO) 100 %; WHITE BLOOD COUNT 7.1 10^3/uL (4.0-10.5)
--- NOTE | 2019-01-09 21:50 | RADIOLOGY REPORT (SQ) ---
EXAM DESCRIPTION: US TRANSVAGINAL COMPLETED DATE/TME: 01/09/2019 20:36 CLINICAL HISTORY: 23 years, Female, vag bleeding, cramping, 1st trimester COMPARISON: None. TECHNIQUE: Sonographic evaluation of the pelvis was performed transvaginally. Doppler was also performed. LIMITATIONS: None. FINDINGS: Uterus measures 9.7 x 5.5 x 7.2 cm in size. Single intrauterine gestational sac is identified with measurements as follows: [place]-rump length: 1.37 cm Yolk sac visualized Cardiac motion not visualized. Estimated gestational age is 7 weeks and 5 days. Cervical length is 2.3 cm. A focus of hypoechogenicity is noted about the uterus measuring up to 1.5 x 2.4 x 1.3 cm in size. This appears to be located just above the gestational sac. Right ovary measures 2.7 x 1.7 x 1.7 cm in size. It contains a hypoechoic lesion measuring 1.2 x 1.0 x 1.4 cm in size, likely indicating a hemorrhagic cyst. Otherwise, the right ovary demonstrates normal low resistance arterial waveforms and venous flow. Dilated gonadal veins are noted about the right adnexa. The left ovary was not visualized. IMPRESSION: Single intrauterine , as above described. However, despite the embryo measuring 1.37 cm in length, no heart tones were identified. demise is a definite possibility. Curvilinear area of hypoechogenicity located about the uterus just above the gestational sac, suspicious for subchorionic hemorrhage. Nonvisualization of the left ovary. copyright 2010 [employer]- All Rights Reserved
[2019-01-09 22:06] LABS: APPEARANCE,URINE SLIGHTLY-CLOUDY; BILIRUBIN,URINE NEGATIVE (NEGATIVE); CALCIUM OXALATE CRYSTALS,URINE FEW /HPF; COLOR,URINE YELLOW; GLUCOSE, URINE NEGATIVE (NEGATIVE); KETONES,URINE NEGATIVE (NEGATIVE); LEUKOCYTE ESTERASE,URINE NEGATIVE (NEGATIVE); NITRITE,URINE NEGATIVE (NEGATIVE); PROTEIN,URINE NEGATIVE (NEGATIVE); URINE SPECIFIC GRAVITY 1.024
--- NOTE | 2019-01-09 22:37 | ER Document Report ---
ED General - General Chief Complaint: Vag Bleeding, +preg <12wks Stated Complaint: VAGINAL BLEEDING Time Seen by Provider: 01/09/19 20:29 [facility] - Follow up tomorrow Notes: Patient is a 23-year-old female, , that is approximately 8 weeks gravid that presents to the emergency department for chief complaint of vaginal bleeding. Patient reports that while she was at work earlier today, she had what she describes as a moderate amount of bleeding, but denies having any clots. She did not have any cramping or pelvic pain. She denied having any nausea, vomiting, diarrhea, dysuria or hematuria. She was concerned because of this, so she decided come to the emergency department, she did not have any prior bleeding in the days before, and has not had any bleeding since his one episode. Past Medical History: Denies chronic medical conditions Past Surgical History: Social History: Denies tobacco, alcohol or drug use. Family History: Reviewed and noncontributory for presenting illness Allergies: Reviewed, see documented allergy list. REVIEW OF SYSTEMS: Other than noted above, the 12 point review of systems was reviewed with the patient and were negative, all pertinent findings are included in the HPI. PHYSICAL EXAMINATION: Vital signs reviewed, nursing noted reviewed. GENERAL: Well-appearing, well-nourished and in no acute distress. HEAD: Atraumatic, normocephalic. EYES: Eyes appear normal, extraocular movements intact, sclera anicteric, conjunctiva are normal. ENT: nares patent, oropharynx clear without exudates. Moist mucous membranes. NECK: Normal range of motion, supple without lymphadenopathy LUNGS: Breath sounds clear to auscultation bilaterally and equal. No wheezes rales or rhonchi. HEART: Regular rate and rhythm without murmurs ABDOMEN: Soft, nontender, normoactive bowel sounds. No rebound, guarding, or rigidity. No masses appreciated. EXTREMITIES: Nontender, good range of motion, no pitting or edema. NEUROLOGICAL: No focal neurological deficits. Moves all extremities spontaneously Motor and sensory grossly intact on exam. PSYCH: Normal mood, normal affect. SKIN: Warm, Dry, normal turgor, no rashes or lesions noted on exposed skin TRAVEL OUTSIDE OF THE [place] IN LAST 30 DAYS: No - Related Data Allergies/Adverse Reactions: No Known Allergies Allergy (Verified 04/23/19 18:45) Past Medical History - General Last Menstrual Period: 11/11/18 - Social History Smoking Status: Never Smoker Chew tobacco use (# tins/day): No Frequency of alcohol use: None Drug Abuse: None Family History: Reviewed & Not Pertinent Patient has suicidal ideation: No Patient has homicidal ideation: No Neurological Medical History: Denies: Hx Migraine Renal/ Medical History: Denies: Hx Peritoneal Dialysis Past Surgical History: Reports: Hx Section - x1 Physical Exam - Vital signs Vitals: Temp Pulse Resp BP Pulse Ox 99.1 F 81 20 111/68 100 01/09/19 19:42 01/09/19 19:42 01/09/19 19:42 01/09/19 19:42 01/09/19 19:42 Course - Re-evaluation Re-evalutation: Patient seen and examined vital signs reviewed. Laboratory data and/or imaging were ordered as appropriate for the patient's presenting symptoms and complaint, with consideration of any critical or life threatening conditions that may be associated with their obtained history and exam as noted above. Results were reviewed when available and demonstrated transvaginal ultrasound revealed developing intrauterine embryo, with no detectable heart tones, her hCG was only 7700, which is consistent with demise. The patient was re-evaluated and was stable, discussed results with her, patient was tearful, she was consulted, she is advised to follow-up with [facility], I went back in the room, to discuss discharge instructions, patient had eloped from the emergency department. Evaluation was most consistent with demise/miscarriage *Note is created using voice recognition software and may contain spelling, syntax or grammatical errors. Laboratory 01/09/19 01/09/19 01/09/19 21:24 21:24 21:24 WBC 7.1 RBC 4.99 Hgb 11.5 L Hct 35.7 L MCV 72 L MCH 23.0 L MCHC 32.1 RDW 14.9 H Plt Count 320 Seg Neutrophils % 55.1 Lymphocytes % 35.7 Monocytes % 7.6 Eosinophils % 1.0 Basophils % 0.6 Absolute Neutrophils 3.9 Absolute Lymphocytes 2.5 Absolute Monocytes 0.5 Absolute Eosinophils 0.1 Absolute Basophils 0.0 Beta HCG, Quant 7700.70 H Total Beta HCG POSITIVE Urine Color Urine Appearance Urine pH Ur Specific [place] Urine Protein Urine Glucose (UA) Urine Ketones Urine Blood Urine Nitrite Urine Bilirubin Urine Urobilinogen Ur Leukocyte Esterase Urine WBC (Auto) Urine RBC (Auto) Squamous Epi Cells Auto Calcium Oxalate Cr Auto Urine Mucus (Auto) Urine Ascorbic Acid Blood Type O POSITIVE Rhogam Indicated RHOGAM NOT INDICATED 01/09/19 21:24 WBC RBC Hgb Hct MCV MCH MCHC RDW Plt Count Seg Neutrophils % Lymphocytes % Monocytes % Eosinophils % Basophils % Absolute Neutrophils Absolute Lymphocytes Absolute Monocytes Absolute Eosinophils Absolute Basophils Beta HCG, Quant Total Beta HCG Urine Color YELLOW Urine Appearance SLIGHTLY-CLOUDY Urine pH 6.0 Ur Specific [place] 1.024 Urine Protein NEGATIVE Urine Glucose (UA) NEGATIVE Urine Ketones NEGATIVE Urine Blood NEGATIVE Urine Nitrite NEGATIVE Urine Bilirubin NEGATIVE Urine Urobilinogen 4.0 H Ur Leukocyte Esterase NEGATIVE Urine WBC (Auto) 2 Urine RBC (Auto) 1 Squamous Epi Cells Auto 2 Calcium Oxalate Cr Auto FEW Urine Mucus (Auto) MOD Urine Ascorbic Acid 40 H Blood Type Rhogam Indicated Transvaginal US 01/09/19 20:36 IMPRESSION: Single intrauterine , as above described. However, despite the embryo measuring 1.37 cm in length, no heart tones were identified. demise is a definite possibility. Curvilinear area of hypoechogenicity located about the uterus just above the gestational sac, suspicious for subchorionic hemorrhage. Nonvisualization of the left ovary. copyright 2010 [employer]- All Rights Reserved - Vital Signs Vital signs: Temp Pulse Resp BP Pulse Ox 99.1 F 81 20 111/68 100 01/09/19 19:42 01/09/19 19:42 01/09/19 19:42 01/09/19 19:42 01/09/19 19:42 - Laboratory Result Diagrams: 01/09/19 21:24 Laboratory results interpreted by me: 01/09/19 01/09/19 01/09/19 21:24 21:24 21:24 Hgb 11.5 L Hct 35.7 L MCV 72 L MCH 23.0 L RDW 14.9 H Beta HCG, Quant 7700.70 H Urine Urobilinogen 4.0 H Urine Ascorbic Acid 40 H Discharge - Discharge Clinical Impression: Miscarriage Subchorionic hemorrhage Qualifiers: Fetus number: single or unspecified fetus Trimester: first trimester Qualified Code(s): O41.8X10 - Other specified disorders of amniotic fluid and membranes, first trimester, not applicable or unspecified; O46.8X1 - Other antepartum hemorrhage, first trimester Condition: Stable Disposition: ELOPED Instructions: Miscarriage Impending ([facility]) Additional Instructions: Please follow-up with the women's health group, to discuss next steps, likely you will pass more blood and clots of the next several days, may have some cramping. If you have concerning amount of bleeding, he can always return to the emergency department sooner, if your having to change a sanitary pad every hour for more than an hour, you should return to the emergency department immediately. Referrals: [facility] [Provider Group] - Follow up tomorrow
== END 2019-01-10 01:28 | disposition left against medical advice (07) ==
LOC: ER 19:10
DX: O03.9 Complete or unspecified spontaneous abortion without complication (principal); O46.8X1 Other antepartum hemorrhage, first trimester; Z3A.08 8 weeks gestation of pregnancy
CPT/HCPCS: 36415; 76817; 81001; 84702; 85025; 86900; 86901; 93976; 99281

== ENCOUNTER 2019-05-13 19:10 | Emergency (ER) | payer MEDICAID ==
[2019-05-13 19:33] VITALS: BP 114/74
== END 2019-05-13 21:55 | disposition left against medical advice (07) ==
LOC: ER 19:10
DX: Z53.21 Procedure and treatment not carried out due to patient leaving prior to being seen by health care provider (principal)

== ENCOUNTER 2019-06-30 11:37 | Emergency (ER) | payer MEDICAID ==
--- NOTE | 2019-06-30 12:29 | ER Document Report ---
ED Medical Screen (RME) - General Chief Complaint: Vaginal Bleeding Stated Complaint: CRAMPING/BLEEDING Time Seen by Provider: 06/30/19 12:24 Mode of Arrival: Ambulatory Information source: Patient Notes: Patient is an otherwise healthy 23-year-old female G5, P3 presenting to the emergency department with vaginal bleeding in the setting of . Patient reports she is approximately 6 weeks and began having vaginal bleeding/spotting yesterday. She reports bleeding has now resolved. She states that she did not pass any clots. She wants to make sure she is not having a mis carriage. Exam: Abdomen soft, nontender. I have greeted and performed a rapid initial assessment of this patient. A comprehensive ED assessment and evaluation of the patient, analysis of test results and completion of the medical decision making process will be conducted by additional ED providers. I have specifically instructed the patient or family members with the patient to immediately return to any nursing staff should anything change in the patient's condition or with their chief complaint. This medical record was dictated with voice recognizing software. There may be grammatical, syntax errors that are unintended. TRAVEL OUTSIDE OF THE [place] IN LAST 30 DAYS: No - Related Data Allergies/Adverse Reactions: No Known Allergies Allergy (Verified 12/10/18 18:45) Home Medications: vitamins Past Medical History - Social History Chew tobacco use (# tins/day): No Frequency of alcohol use: None Drug Abuse: None Neurological Medical History: Denies: Hx Migraine Renal/ Medical History: Denies: Hx Peritoneal Dialysis Past Surgical History: Reports: Hx Section - x1 Physical Exam - Vital signs Vitals: Temp Pulse Resp BP Pulse Ox 98.0 F 99 18 118/70 100 06/30/19 11:46 06/30/19 11:46 06/30/19 11:46 06/30/19 11:46 06/30/19 11:46 Course - Vital Signs Vital signs: Temp Pulse Resp BP Pulse Ox 98.0 F 99 18 118/70 100 06/30/19 11:46 06/30/19 11:46 06/30/19 11:46 06/30/19 11:46 06/30/19 11:46
[2019-06-30 13:06] LABS: APPEARANCE,URINE CLOUDY; BILIRUBIN,URINE NEGATIVE (NEGATIVE); COLOR,URINE YELLOW; GLUCOSE, URINE NEGATIVE (NEGATIVE); KETONES,URINE NEGATIVE (NEGATIVE); LEUKOCYTE ESTERASE,URINE NEGATIVE (NEGATIVE); NITRITE,URINE NEGATIVE (NEGATIVE); PROTEIN,URINE 30 mg/dL (NEGATIVE)
[2019-06-30 13:12] LABS: ABSOLUTE EOSINOPHILS # (AUTO) 0.1 10^3/uL (0.0-0.6); ABSOLUTE LYMPHOCYTES (AUTO) 1.8 10^3/uL (0.5-4.7); ABSOLUTE MONOCYTES (AUTO) 0.6 10^3/uL (0.1-1.4); ABSOLUTE NEUT (AUTO) 4.5 10^3/uL (1.7-8.2); BASOPHILS % (AUTO) 0.5 % (0-2); EOSINOPHILS % (AUTO) 1.3 % (0-6); HEMATOCRIT 36.9 % (36.0-47.0); HEMOGLOBIN 11.9 g/dL (12.0-15.5); LYMPHOCYTES % (AUTO) 25.7 % (13-45); MEAN CORPUSCULAR HGB CONC 32.2 g/dL (32.0-36.0); MEAN CORPUSCULAR VOLUME 71 fl (80-97); MONOCYTES % (AUTO) 8.3 % (3-13); PLATELET COUNT 303 10^3/uL (150-450); RED BLOOD COUNT 5.18 10^6/uL (3.72-5.28); SEGMENTED NEUTROPHILS % (AUTO) 64.2 % (42-78); TOTAL CELLS COUNTED % (AUTO) 100 %; WHITE BLOOD COUNT 7.1 10^3/uL (4.0-10.5)
--- NOTE | 2019-06-30 13:58 | RADIOLOGY REPORT (SQ) ---
EXAM DESCRIPTION: U/S OB TRANSVAGINAL W/O DOP COMPLETED DATE/TIME: 06/30/2019 1:42 pm REASON FOR STUDY: 6 weeks preg, vag bleed COMPARISON: None. TECHNIQUE: Transvaginal static and realtime grayscale images acquired of the pelvis. Additional nazario cted spectral and color Doppler images recorded. All images stored on PACs. CLINICAL DATES: LMP 05/20/2019. EGA based on the LMP is 5 weeks and 6 days LIMITATIONS: None. FINDINGS: UTERUS: The uterus measures 9.8 x 6.8 x 6.4 cm. There is an intrauterine gestational sac that contains a yolk sac and a pole without a heartbeat ; based on the crown-rump length of 3 m m the estimated gestational age equals 5 weeks and 6 days (CARITO is 02/24/2020). There is a heterogeneou s hypoechoic area adjacent to the gestational sac that measures 3.3 x 2.7 x 1.6 cm that could represe nt a subchorionic hemorrhage. CERVICAL LENGTH: 1.9 cm. Closed. RIGHT ADNEXA: The right ovary measures 2.7 x 2 x 2.1 cm. There is no adnexal mass or free fluid. LEFT ADNEXA: The left ovary measures 3.4 x 1.9 x 2.4 cm. There is no adnexal mass or free fluid. FREE FLUID: There is a trace amount of free fluid in the cul-de-sac. OTHER: No other finding. IMPRESSION: 1. Intrauterine gestational sac that contains a yolk sac and a pole without a hea rtbeat. The absence of a heartbeat kidney pole with a crown rump length that measures less ivett n 7 mm is suspicious but not diagnostic of failure. Correlation with serial beta HCG and a follow-up sonogram recommended. 2. Heterogeneous hypoechoic area adjacent to the gestational sac that measures 3.3 x 2.7 x 1.6 cm co uld represent a subchorionic hemorrhage. 3. Trace amount of free fluid in the cul-de-sac. Trimester of : First trimester - 0 to 13 weeks. TECHNICAL DOCUMENTATION: JOB ID: [id number] [employer]- All Rights Reserved rev Reading location - IP/workstation name: [email or web address]
--- NOTE | 2019-06-30 15:39 | ER Document Report ---
ED General - General Chief Complaint: Vaginal Bleeding Stated Complaint: CRAMPING/BLEEDING Time Seen by Provider: 06/30/19 12:24 Mode of Arrival: Ambulatory Information source: Patient TRAVEL OUTSIDE OF THE [place] IN LAST 30 DAYS: No - HPI Notes: Patient presents with abdominal cramping and vaginal bleeding. She states that this occurred yesterday. She states today she feels fine but her made her come to the emergency department. Yesterday the cramping was diffuse about the abdomen and mild to moderate. Nothing made it better or worse. No significant radiation of this pain. She states she states she had some spotting of blood but no clots. She states she does have a history of anemia but does not take any type of supplements. She states she recently had a miscarriage approximately 5 months ago and had a D&C at that time. She states this is her fifth with 3 live children. - Related Data Allergies/Adverse Reactions: No Known Allergies Allergy (Verified 12/10/18 18:45) Home Medications: vitamins Past Medical History - General Information source: Patient - Social History Smoking Status: Never Smoker Chew tobacco use (# tins/day): No Frequency of alcohol use: None Drug Abuse: None Family History: Reviewed & Not Pertinent Patient has suicidal ideation: No Patient has homicidal ideation: No Neurological Medical History: Denies: Hx Migraine Renal/ Medical History: Denies: Hx Peritoneal Dialysis Past Surgical History: Reports: Hx Section - x1 Review of Systems - Review of Systems Constitutional: denies: Chills, Fever Cardiovascular: denies: Chest pain, Palpitations Respiratory: denies: Cough, Hemoptysis, Short of breath -: Yes All other systems reviewed and negative Physical Exam - Vital signs Vitals: Temp Pulse Resp BP Pulse Ox 98.0 F 99 18 118/70 100 06/30/19 11:46 06/30/19 11:46 06/30/19 11:46 06/30/19 11:46 06/30/19 11:46 Interpretation: Normal - General General appearance: Appears well, Alert - HEENT Head: Normocephalic, Atraumatic Eyes: Normal Pupils: PERRL - Respiratory Respiratory status: No respiratory distress Chest status: Nontender Breath sounds: Normal Chest palpation: Normal - Cardiovascular Rhythm: Regular Heart sounds: Normal auscultation Murmur: No - Abdominal Inspection: Normal Distension: No distension Bowel sounds: Normal Tenderness: Nontender Organomegaly: No organomegaly - Back Back: Normal, Nontender - Extremities General upper extremity: Normal inspection, Nontender, Normal color, Normal ROM, Normal temperature General lower extremity: Normal inspection, Nontender, Normal color, Normal ROM, Normal temperature, Normal weight bearing. No: Meghana's sign - Neurological Neuro grossly intact: Yes Cognition: Normal Orientation: AAOx4 [place] Coma Scale Eye Opening: Spontaneous [place] Coma Scale Verbal: Oriented [place] Coma Scale Motor: Obeys Commands Kandice Coma Scale Total: 15 Speech: Normal Motor strength normal: LUE, RUE, LLE, RLE Sensory: Normal - Psychological Associated symptoms: Normal affect, Normal mood - Skin Skin Temperature: Warm Skin Moisture: Dry Skin Color: Normal Course - Re-evaluation Re-evalutation: 06/30/19 15:37 Patient presents with some spotting and abdominal pain yesterday. Today she feels fine. She does have an ultrasound that is suspicious for possible nonviable however patient will require repeat ultrasound and some serial laboratories. She does have an appointment with her BATH TESTER tomorrow so I will residential treatment counselor the patient on the above findings and recommend that she keeps the appointment tomorrow. - Vital Signs Vital signs: Temp Pulse Resp BP Pulse Ox 98.0 F 99 18 118/70 100 06/30/19 11:46 06/30/19 11:46 06/30/19 11:46 06/30/19 11:46 06/30/19 11:46 - Laboratory Result Diagrams: 06/30/19 12:35 Laboratory results interpreted by me: 06/30/19 06/30/19 06/30/19 12:30 12:35 12:35 Hgb 11.9 L MCV 71 L MCH 23.0 L RDW 15.0 H Beta HCG, Quant 49561.00 H Urine Protein 30 H Urine Blood LARGE H Urine Urobilinogen 4.0 H - Diagnostic Test Radiology reviewed: Image reviewed, Reports reviewed Discharge - Discharge Clinical Impression: Threatened Condition: Stable Disposition: HOME, SELF-CARE Instructions: Bleeding During Early ([facility]), Threatened Miscarriage ([facility]) Additional Instructions: Please keep your appointment tomorrow as scheduled
[2019-06-30 16:25] VITALS: BP 118/67
== END 2019-06-30 15:55 | disposition home or self-care (01) ==
LOC: ER 11:37
DX: O20.0 Threatened abortion (principal); O26.891 Other specified pregnancy related conditions, first trimester; R10.9 Unspecified abdominal pain; Z3A.00 Weeks of gestation of pregnancy not specified
CPT/HCPCS: 36415; 76817; 81001; 84702; 85025; 86900; 86901; 99284

== ENCOUNTER 2019-07-28 10:18 | Emergency (ER) | payer MEDICAID ==
[2019-07-28] MEDS ORDERED: NORMAL SALINE 1000 ML 1,000 ML IV ONE (11:15)
[2019-07-28] MEDS ORDERED: PROMETHAZINE HCL 25 MG TABLET PO ONE (11:17)
--- NOTE | 2019-07-28 11:17 | ER Document Report ---
ED Medical Screen (RME) - General Chief Complaint: Abdominal Pain Stated Complaint: ABDOMINAL PAIN, VOMITING Time Seen by Provider: 07/28/19 11:11 Mode of Arrival: Ambulatory Information source: Patient Notes: Patient presents G5, P3 stating that she has had lower pelvic and low back pain with constipation for the past 3 weeks. Patient states she is vomited 4 times today. Patient denies any vaginal bleeding or urinary symptoms. I have greeted and performed a rapid initial assessment of this patient. A comprehensive ED assessment and evaluation of the patient, analysis of test results and completion of the medical decision making process will be conducted by additional ED providers. TRAVEL OUTSIDE OF THE [place] IN LAST 30 DAYS: No - Related Data Allergies/Adverse Reactions: No Known Allergies Allergy (Verified 07/28/19 11:10) Home Medications: Iron. Zofran Past Medical History - Social History Chew tobacco use (# tins/day): No Frequency of alcohol use: None Drug Abuse: None Neurological Medical History: Denies: Hx Migraine Renal/ Medical History: Denies: Hx Peritoneal Dialysis Past Surgical History: Reports: Hx Section - x1 Physical Exam - Vital signs Vitals: Temp Pulse Resp BP Pulse Ox 98.7 F 90 16 108/63 100 07/28/19 10:48 07/28/19 10:48 07/28/19 10:48 07/28/19 10:48 07/28/19 10:48 - General General appearance: Appears well, Alert Notes: lower pelvic pain Course - Vital Signs Vital signs: Temp Pulse Resp BP Pulse Ox 98.7 F 90 16 108/63 100 07/28/19 11:10 07/28/19 11:10 07/28/19 11:10 07/28/19 11:10 07/28/19 11:10
[2019-07-28 11:45] LABS: ABSOLUTE BASOPHILS # (AUTO) 0.1 10^3/uL (0.0-0.2); ABSOLUTE LYMPHOCYTES (AUTO) 1.8 10^3/uL (0.5-4.7); ABSOLUTE MONOCYTES (AUTO) 0.7 10^3/uL (0.1-1.4); ABSOLUTE NEUT (AUTO) 9.2 10^3/uL (1.7-8.2); BASOPHILS % (AUTO) 0.5 % (0-2); EOSINOPHILS % (AUTO) 0.4 % (0-6); HEMATOCRIT 38.1 % (36.0-47.0); HEMOGLOBIN 12.4 g/dL (12.0-15.5); LYMPHOCYTES % (AUTO) 15.2 % (13-45); MEAN CORPUSCULAR HEMOGLOBIN 22.9 pg (27.0-33.4); MEAN CORPUSCULAR HGB CONC 32.4 g/dL (32.0-36.0); MEAN CORPUSCULAR VOLUME 71 fl (80-97); MONOCYTES % (AUTO) 6.1 % (3-13); PLATELET COUNT 311 10^3/uL (150-450); SEGMENTED NEUTROPHILS % (AUTO) 77.8 % (42-78); TOTAL CELLS COUNTED % (AUTO) 100 %; WHITE BLOOD COUNT 11.8 10^3/uL (4.0-10.5)
[2019-07-28 11:52] LABS: AMORPHOUS SEDIMENT,URINE 3+ /HPF; APPEARANCE,URINE TURBID; BILIRUBIN,URINE NEGATIVE (NEGATIVE); COLOR,URINE YELLOW; GLUCOSE, URINE NEGATIVE (NEGATIVE); KETONES,URINE NEGATIVE (NEGATIVE); LEUKOCYTE ESTERASE,URINE MODERATE (NEGATIVE); NITRITE,URINE NEGATIVE (NEGATIVE); PROTEIN,URINE NEGATIVE (NEGATIVE); URINE SPECIFIC GRAVITY 1.018
[2019-07-28 12:06] LABS: ALBUMIN 4.2 g/dL (3.5-5.0); ALKALINE PHOSPHATASE 59 U/L (38-126); ANION GAP 11 (5-19); ASPARTATE AMINO TRANSFERASE 17 U/L (14-36); BILIRUBIN,TOTAL 0.7 mg/dL (0.2-1.3); BLOOD UREA NITROGEN 5 mg/dL (7-20); CALCIUM 9.8 mg/dL (8.4-10.2); CARBON DIOXIDE 23 mmol/L (22-30); CHLORIDE 105 mmol/L (98-107); GLUCOSE 90 mg/dL (75-110); POTASSIUM 4.2 mmol/L (3.6-5.0); TOTAL PROTEIN 7.7 g/dL (6.3-8.2)
--- NOTE | 2019-07-28 13:08 | RADIOLOGY REPORT (SQ) ---
EXAM DESCRIPTION: U/S OB TRANSVAGINAL W/O DOP COMPLETED DATE/TIME: 07/28/2019 12:49 pm REASON FOR STUDY: pelvic, low back pain COMPARISON: 06/30/2019 TECHNIQUE: Transvaginal static and realtime grayscale images acquired of the pelvis. Additional nazario cted spectral and color Doppler images recorded. All images stored on PACs. bHCG: Not available. CLINICAL DATES: 9 weeks 6 days LIMITATIONS: None. FINDINGS: FETUS: Single Living intrauterine . ULTRASOUND EGA: 9 weeks 5 days ULTRASOUND CARITO: 03/05/2020 EFW: Not applicable less than 20 weeks. CRL: 2.9 cm. FHR: 187 beats per minute. SURVEY: No visualized anomalies. AMNIOTIC FLUID: Adequate amount. PLACENTA: Not yet developed due to early gestation. SUBCHORIONIC BLEED: Yes. SIZE OF BLEED: 2.1 cm. UTERUS: No masses. No anomalies. CERVICAL LENGTH: 2.4 cm. Closed. RIGHT ADNEXA: Ovary not identified due to poor acoustical window. No adnexal free fluid. No adnexal masses. LEFT ADNEXA: Ovary not identified due to poor acoustical window. No adnexal free fluid. No adnexal masses. FREE FLUID: None. OTHER: No other significant finding. IMPRESSION: LIVING INTRAUTERINE . EGA 9 weeks 5 days. Small subchorionic hemorrhage. Trimester of : First trimester - 0 to 13 weeks. TECHNICAL DOCUMENTATION: JOB ID: [id number] [employer]- All Rights Reserved Reading location - IP/workstation name: [email or web address]
[2019-07-28] MEDS ORDERED: METOCLOPRAMIDE HCL INJ/PF 10 MG/2 ML SDV IV ONE (13:29)
--- NOTE | 2019-07-28 13:34 | ER Document Report ---
ED General - General Chief Complaint: Abdominal Pain Stated Complaint: ABDOMINAL PAIN, VOMITING Time Seen by Provider: 07/28/19 11:11 Mode of Arrival: Ambulatory TRAVEL OUTSIDE OF THE [place] IN LAST 30 DAYS: No - HPI Notes: Patient presents with complaints of abdominal pain. She states she is approximate 2 months and feels very constipated. She states her last bowel movement was approximately 3 weeks ago. She states she had trouble with constipation with her previous as well. At that time she was prescribed MiraLAX. She states that with this her OB has told her not to take MiraLAX. She states she continues to have problems with constipation as well as some problems with vomiting. She states she was prescribed Zofran but this is not helping with the vomiting. The abdominal pain is moderate to severe. It is intermittent and crampy. It is better if she has a bowel movement and worse when she remains constipated. It does radiate up into her belly. She has had no leakage of fluid from the vagina or vaginal bleeding. No fevers. - Related Data Allergies/Adverse Reactions: No Known Allergies Allergy (Verified 07/28/19 11:10) Home Medications: Iron. Zofran Past Medical History - General Information source: Patient - Social History Smoking Status: Never Smoker Chew tobacco use (# tins/day): No Frequency of alcohol use: None Drug Abuse: None Family History: Reviewed & Not Pertinent Patient has suicidal ideation: No Patient has homicidal ideation: No Neurological Medical History: Denies: Hx Migraine Renal/ Medical History: Denies: Hx Peritoneal Dialysis Past Surgical History: Reports: Hx Section - x1 Review of Systems - Review of Systems Constitutional: denies: Chills, Fever Cardiovascular: denies: Chest pain, Palpitations Respiratory: denies: Cough, Short of breath Gastrointestinal: Constipation -: Yes All other systems reviewed and negative Physical Exam - Vital signs Vitals: Temp Pulse Resp BP Pulse Ox 98.7 F 90 16 108/63 100 07/28/19 10:48 07/28/19 10:48 07/28/19 10:48 07/28/19 10:48 07/28/19 10:48 Interpretation: Normal - General General appearance: Appears well, Alert - HEENT Head: Normocephalic, Atraumatic Eyes: Normal Pupils: PERRL - Respiratory Respiratory status: No respiratory distress Chest status: Nontender Breath sounds: Normal Chest palpation: Normal - Cardiovascular Rhythm: Regular Heart sounds: Normal auscultation Murmur: No - Abdominal Inspection: Normal Distension: No distension Bowel sounds: Normal Tenderness: Nontender Organomegaly: No organomegaly - Back Back: Normal, Nontender - Extremities General upper extremity: Normal inspection, Nontender, Normal color, Normal ROM, Normal temperature General lower extremity: Normal inspection, Nontender, Normal color, Normal ROM, Normal temperature, Normal weight bearing. No: Meghana's sign - Neurological Neuro grossly intact: Yes Cognition: Normal Orientation: AAOx4 [place] Coma Scale Eye Opening: Spontaneous [place] Coma Scale Verbal: Oriented [place] Coma Scale Motor: Obeys Commands Kandice Coma Scale Total: 15 Speech: Normal Motor strength normal: LUE, RUE, LLE, RLE Sensory: Normal - Psychological Associated symptoms: Normal affect, Normal mood - Skin Skin Temperature: Warm Skin Moisture: Dry Skin Color: Normal Course - Re-evaluation Re-evalutation: 07/28/19 13:31 Patient presents with abdominal pain secondary to constipation while . She has been informed not to take MiraLAX. I am going to recommend that the patient that she try to increase the fiber in her diet as well as her water intake. I am also can recommend that she tries MiraLAX as an [id number] remedy. 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 I will will ask her to stop Zofran and try Reglan for the nausea. - Vital Signs Vital signs: Temp Pulse Resp BP Pulse Ox 98.7 F 90 16 108/63 100 07/28/19 11:10 07/28/19 11:10 07/28/19 11:10 07/28/19 11:10 07/28/19 11:10 - Laboratory Result Diagrams: 07/28/19 11:33 07/28/19 11:33 Laboratory results interpreted by me: 07/28/19 07/28/19 07/28/19 11:33 11:33 11:33 WBC 11.8 H RBC 5.40 H MCV 71 L MCH 22.9 L RDW 15.0 H Absolute Neuts (auto) 9.2 H BUN 5 L Beta HCG, Quant 59421.00 H Urine Urobilinogen 2.0 H Ur Leukocyte Esterase MODERATE H - Diagnostic Test Radiology reviewed: Image reviewed, Reports reviewed Discharge - Discharge Clinical Impression: Constipation Qualifiers: Constipation type: other constipation type Qualified Code(s): K59.09 - Other constipation Condition: Stable Disposition: HOME, SELF-CARE Instructions: Constipation ([facility]) Additional Instructions: For your vomiting stop taking Zofran. Try taking the prescription for Reglan that you were given today. For your constipation try to increase the fiber in your diet by eating lots of fruits and vegetables as well as whole grain breads and cereals. Please also try to drink lots of water. It is also okay to try an wpbg-[id number]-[id number] fiber supplement such as Metamucil. If these do not work try using the Colace prescription that you were given. Please follow-up with your hr internship and horizontal boring mill operator as soon as possible concerning your constipation. Prescriptions: Docusate Sodium [Colace 100 mg Capsule] 100 mg PO DAILY 10 Days #10 capsule Metoclopramide HCl [Reglan 10 mg Tablet] 1 tab PO Q6 #10 tablet
[2019-07-28 13:42] VITALS: BP 109/61
== END 2019-07-28 14:02 | disposition home or self-care (01) ==
LOC: ER 10:18
DX: O99.619 Diseases of the digestive system complicating pregnancy, unspecified trimester (principal); K59.00 Constipation, unspecified; O21.9 Vomiting of pregnancy, unspecified; O26.899 Other specified pregnancy related conditions, unspecified trimester; R10.9 Unspecified abdominal pain; Z3A.00 Weeks of gestation of pregnancy not specified; Z79.899 Other long term (current) drug therapy
CPT/HCPCS: 99284; 96361; 96374; 36415; 84702; 85025; 80053; 81001; 76817; J2765; J3490; J7030

== ENCOUNTER 2019-09-03 04:53 | Emergency (ER) | payer MEDICAID ==
[2019-09-03] MEDS ORDERED: DIPHENHYDRAMINE HCL 50 MG/ML VIAL IV ONE (05:52)
[2019-09-03] MEDS ORDERED: ONDANSETRON HCL INJ/PF 4 MG/2 ML SDV IV ONE (05:52)
[2019-09-03] MEDS ORDERED: METOCLOPRAMIDE HCL INJ/PF 10 MG/2 ML SDV IV ONE (10:41)
--- NOTE | 2019-09-03 10:42 | ER Document Report ---
ED General - General Chief Complaint: Headache Stated Complaint: MIGRAINE,DIZZINESS,VOMITING, 16 WEEKS Time Seen by Provider: 09/03/19 10:23 Primary Care Provider: MARY WEST MD [Primary Care Provider] - Follow up in 3-5 days Mode of Arrival: Ambulatory Information source: Patient Notes: 23-year-old female approximately 16 weeks G5, P3 presents emergency department with complaints of a migraine that started yesterday. Reports started on forehead mostly on the left side. Reports she was light noise and smell sensitive. She reports she vomited at least 2 times over the course of the day and early into the morning. She reports her mother also has a history of migraines. Patient reports she has never been diagnosed with migraines but she has frequent headaches. She reports she has not had one in a while. Denies trauma. Patient received Benadryl and Zofran upon arrival to the hospital and she reports she is feeling better. Reports headache is decreased no further vomiting. Reports headache 2/5. Pain with void. Denies vaginal pain, denies vaginal bleeding. Denies abdominal pain. She reports she has not felt any movement yet. 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 TRAVEL OUTSIDE OF THE [place] IN LAST 30 DAYS: No - HPI Onset: Yesterday Onset/Duration: Sudden, Persistent Quality of pain: Achy Associated symptoms: Headache, Vomiting Exacerbated by: Denies Relieved by: Denies Similar symptoms previously: Yes Recently seen / treated by doctor: No - Related Data Allergies/Adverse Reactions: No Known Allergies Allergy (Verified 09/03/19 05:01) Home Medications: VOMITING. 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 Lives with: Family Family History: Reviewed & Not Pertinent Patient has suicidal ideation: No Patient has homicidal ideation: No Neurological Medical History: Reports: Hx Migraine Renal/ Medical History: Denies: Hx Peritoneal Dialysis Past Surgical History: Reports: Hx Section - x1, Hx Dilation and Curettage Review of Systems - Review of Systems Notes: Review HPI for review of systems., All other systems negative Physical Exam - Vital signs Vitals: Temp Pulse Resp BP Pulse Ox 97.5 F 97 14 110/74 100 09/03/19 04:59 09/03/19 04:59 09/03/19 04:59 09/03/19 04:59 09/03/19 04:59 - General General appearance: Appears well, Alert In distress: None - HEENT Head: Normocephalic Eyes: Normal Conjunctiva: Normal Extraocular movements intact: Yes Eyelashes: Normal Pupils: PERRL Ears: Normal External canal: Normal Tympanic membrane: Normal Nasal: Normal Mouth/Lips: Normal Mucous membranes: Moist Pharynx: Normal. No: Exudate, Peritonsillar abscess Neck: Normal, Supple. No: Lymphadenopathy - Respiratory Respiratory status: No respiratory distress Chest status: Nontender Breath sounds: Normal Chest palpation: Normal - Cardiovascular Rhythm: Regular Heart sounds: Normal auscultation - Abdominal Inspection: Gravid female Distension: No distension Bowel sounds: Normal Tenderness: Nontender - Back Back: Normal. No: CVA tenderness, Vertebra tenderness - Extremities General upper extremity: Normal ROM General lower extremity: Normal ROM - Neurological Neuro grossly intact: Yes Cognition: Normal Orientation: AAOx4 Kandice Coma Scale Eye Opening: Spontaneous [place] Coma Scale Verbal: Oriented Kandice Coma Scale Motor: Obeys Commands [place] Coma Scale Total: 15 Speech: Normal Cranial nerves: Normal - Psychological Associated symptoms: Normal affect, Normal mood - Skin Skin Temperature: Warm Skin Moisture: Dry Skin Color: Normal Course - Re-evaluation Re-evalutation: 09/03/19 11:19 Patient presented to the emergency department with complaints of headache that started yesterday. She received Zofran Benadryl reported she felt a little bit better. She did receive some Reglan reports 05 for pain. Denies vomiting. Reports she is ready to go home. Urine with some small leukocytes but patient denies pain with void denies urinary frequency denies vaginal pain. Heart tones 140. Laboratory 09/03/19 10:45 Urine Color YELLOW Urine Appearance CLOUDY Urine pH 7.0 Ur Specific [place] 1.016 Urine Protein NEGATIVE Urine Glucose (UA) NEGATIVE Urine Ketones NEGATIVE Urine Blood NEGATIVE Urine Nitrite NEGATIVE Urine Bilirubin NEGATIVE Urine Urobilinogen 2.0 H Ur Leukocyte Esterase SMALL H Urine WBC (Auto) 7 Urine RBC (Auto) 2 Urine Bacteria (Auto) 1+ Squamous Epi Cells Auto 9 Amorphous Sediment Auto TRACE Urine Mucus (Auto) FEW Urine Ascorbic Acid NEGATIVE 09/03/19 11:20 - Vital Signs Vital signs: Temp Pulse Resp BP Pulse Ox 98.4 F 86 16 104/67 100 09/03/19 11:00 09/03/19 11:00 09/03/19 11:00 09/03/19 11:00 09/03/19 11:00 - Laboratory Laboratory results interpreted by me: 09/03/19 10:45 Urine Urobilinogen 2.0 H Ur Leukocyte Esterase SMALL H Discharge - Discharge Clinical Impression: Nausea & vomiting Headache Qualifiers: Headache type: unspecified Headache chronicity pattern: acute headache Intractability: not intractable Qualified Code(s): R51 - Headache Disposition: HOME, SELF-CARE Instructions: Antinausea Medication ([facility]), Use of Diphenhydramine, Headache ([facility]), Reglan ([facility]) Additional Instructions: *You have been evaluated for a headache *Take tylenol as indicated *Push fluids *Follow up with a primary care provider within 5 days for recheck *Return to ED for worsening condition, changes, needs Forms: Return to Work Referrals: MARY WEST MD [Primary Care Provider] - Follow up in 3-5 days
[2019-09-03 11:04] VITALS: BP 104/67
[2019-09-03 11:12] LABS: AMORPHOUS SEDIMENT,URINE TRACE /HPF; APPEARANCE,URINE CLOUDY; BILIRUBIN,URINE NEGATIVE (NEGATIVE); COLOR,URINE YELLOW; GLUCOSE, URINE NEGATIVE (NEGATIVE); KETONES,URINE NEGATIVE (NEGATIVE); LEUKOCYTE ESTERASE,URINE SMALL (NEGATIVE); NITRITE,URINE NEGATIVE (NEGATIVE); PROTEIN,URINE NEGATIVE (NEGATIVE); URINE SPECIFIC GRAVITY 1.016
== END 2019-09-03 11:21 | disposition home or self-care (01) ==
LOC: ER 04:53
DX: O26.92 Pregnancy related conditions, unspecified, second trimester (principal); R51 Headache; R11.2 Nausea with vomiting, unspecified; Z3A.16 16 weeks gestation of pregnancy
CPT/HCPCS: 99284; 96374; 96375; 81001; J1200; J2765; J2405

== ENCOUNTER 2019-11-22 01:15 | Outpatient (CLI) | payer MEDICAID ==
[2019-11-22 01:48] LABS: APPEARANCE,URINE CLEAR; BILIRUBIN,URINE NEGATIVE (NEGATIVE); COLOR,URINE YELLOW; GLUCOSE, URINE NEGATIVE (NEGATIVE); KETONES,URINE NEGATIVE (NEGATIVE); LEUKOCYTE ESTERASE,URINE NEGATIVE (NEGATIVE); NITRITE,URINE NEGATIVE (NEGATIVE); PROTEIN,URINE NEGATIVE (NEGATIVE); URINE SPECIFIC GRAVITY 1.013
[2019-11-22 02:03] LABS: URINE AMPHETAMINES SCREEN NEGATIVE; URINE BARBITURATES SCREEN NEGATIVE; URINE BENZODIAZEPINES SCREEN NEGATIVE; URINE COCAINE SCREEN NEGATIVE; URINE MARIJUANA (THC) SCREEN NEGATIVE; URINE METHADONE SCREEN NEGATIVE; URINE PHENCYCLIDINE SCREEN NEGATIVE
--- NOTE | 2019-11-22 03:09 | RADIOLOGY REPORT (SQ) ---
EXAM DESCRIPTION: US LIMITED CLINICAL HISTORY: 24 years Female cervical length- abd pain, , LMP 05/23/2019 COMPARISON: None TECHNIQUE: Limited transabdominal and transvaginal OB ultrasound was performed. FINDINGS: There is a single intrauterine in a vertex presentation. heart rate is measured at 147 bpm. The cervix is closed and measures about 1.5 cm in length. The amniotic fluid index measures 6.6 cm with the deepest pocket measuring 3.2 cm. The clinical age is 26 weeks 1 day giving an CARITO on 02/27/2020. IMPRESSION: Single viable intrauterine in a vertex presentation. The cervical length measures about 1.5 cm.
== END 2019-11-22 03:22 | disposition home or self-care (01) ==
LOC: LC 01:15
PROVIDERS: ATTEND Obstetrics & Gynecology Gynecology
DX: O47.02 False labor before 37 completed weeks of gestation, second trimester (principal); Z3A.26 26 weeks gestation of pregnancy
CPT/HCPCS: 76815; 80307; 81001

== ENCOUNTER 2020-01-07 20:48 | Outpatient (CLI) | payer OTHER, MEDICAID ==
[2020-01-07 21:25] LABS: APPEARANCE,URINE SLIGHTLY-CLOUDY; BILIRUBIN,URINE NEGATIVE (NEGATIVE); COLOR,URINE YELLOW; GLUCOSE, URINE NEGATIVE (NEGATIVE); KETONES,URINE NEGATIVE (NEGATIVE); LEUKOCYTE ESTERASE,URINE NEGATIVE (NEGATIVE); NITRITE,URINE NEGATIVE (NEGATIVE); PROTEIN,URINE NEGATIVE (NEGATIVE); URINE SPECIFIC GRAVITY 1.012; UROBILINOGEN,URINE NEGATIVE mg/dL (<2.0)
[2020-01-07 21:58] LABS: URINE AMPHETAMINES SCREEN NEGATIVE; URINE BARBITURATES SCREEN NEGATIVE; URINE BENZODIAZEPINES SCREEN NEGATIVE; URINE COCAINE SCREEN NEGATIVE; URINE MARIJUANA (THC) SCREEN NEGATIVE; URINE METHADONE SCREEN NEGATIVE; URINE PHENCYCLIDINE SCREEN NEGATIVE
--- NOTE | 2020-01-07 22:06 | Non Stress Test Report ---
Non Stress Test Datetime Report Generated by CPN: 01/07/2020 22:06 DEMOGRAPHIC EGA NST: 32.5 INDICATION Indication for Study (NST) Other: gestational age > 32 weeks VITAL SIGNS Temperature - NST: 98.5 Pulse - NST: 97 RESP - NST: 17 NBPSYS NST: 106 NBPDIA NST: 60 MONITORING Monitor Explained: Monitor Explained; Test Explained; Patient Verbalized Understanding Time on Monitor: 01/07/2020 21:08 Time off Monitor: 01/07/2020 21:44 NST Duration: 36 NST INTERVENTIONS NST Interventions: PO Hydration; Reposition Patient Physician Notified NST: dr. rodríguez BABY A: [id number] BABY A Movement : Present Contraction Frequency : 0 FHR Baseline : 145 Accelerations : 15X15 Decelerations : None Variability : Moderate 6-25bpm NST Review: Meets Criteria for Reactive NST NST Review and Verified By : MITCHELL Stanford NST Results: Reactive NST REPORT Report Trigger: Send Report
== END 2020-01-07 21:54 | disposition home or self-care (01) ==
LOC: LC 20:48
PROVIDERS: ATTEND Student in an Organized Health Care Education/Training Program
DX: Z34.83 Encounter for supervision of other normal pregnancy, third trimester (principal); Z3A.32 32 weeks gestation of pregnancy
CPT/HCPCS: 59025; 80307; 81005

== ENCOUNTER 2020-06-22 13:07 | Emergency (ER) | payer OTHER, MEDICAID ==
[2020-06-22] MEDS ORDERED: ONDANSETRON 4 MG TAB.RAPDIS PO ONE (13:20)
[2020-06-22] MEDS ORDERED: NORMAL SALINE 1000 ML 1,000 ML IV ONE ×2 (13:20→18:10)
--- NOTE | 2020-06-22 13:22 | ER Document Report ---
ED Medical Screen (RME) - General Chief Complaint: Abdominal Pain Stated Complaint: Nausea and vomiting Time Seen by Provider: 06/22/20 13:11 Primary Care Provider: MARY WEST MD [Primary Care Provider] - Follow up as needed Mode of Arrival: Wheelchair Information source: Patient Notes: 24-year-old female presents to ED for complaint of abdominal pain nausea vomi ting. She states it started last night. She states she took trazodone for the first time last night and she does not know what time she took it. I do not think this is related to the trazodone. She has generalized abdominal pain with nausea and vomiting. Last menstrual period was May 31. She does have a history of a D&C and anxiety. Patient is doubled over stating that she has pain on the right side but she has active bowel sounds with pain to palpation to all areas of her abdomen. Her abdomen is soft. I have greeted and performed a rapid initial assessment of this patient. A comprehensive ED assessment and evaluation of the patient, analysis of test results and completion of medical decision making process will be conducted by an additional ED providers. TRAVEL OUTSIDE OF THE [place] IN LAST 30 DAYS: No - Related Data Allergies/Adverse Reactions: No Known Allergies Allergy (Verified 06/22/20 13:11) Past Medical History - Social History Frequency of alcohol use: None Drug Abuse: None Neurological Medical History: Reports: Hx Migraine Renal/ Medical History: Denies: Hx Peritoneal Dialysis Past Surgical History: Reports: Hx Section - x1, Hx Dilation and Curettage Physical Exam - Vital signs Vitals: Temp Pulse BP Pulse Ox 97.7 F 82 122/77 100 06/22/20 13:23 06/22/20 13:23 06/22/20 13:23 06/22/20 13:23 Course - Vital Signs Vital signs: Temp Pulse Resp BP Pulse Ox 97.7 F 82 122/77 100 06/22/20 13:23 06/22/20 13:23 06/22/20 13:23 06/22/20 13:23 Doctor's Discharge - Discharge Referrals: MARY WEST MD [Primary Care Provider] - Follow up as needed
--- NOTE | 2020-06-22 13:32 | ER Document Report ---
ED General - General Chief Complaint: Abdominal Pain Stated Complaint: Nausea and vomiting Time Seen by Provider: 06/22/20 13:11 Primary Care Provider: MARY WEST MD [NO LOCAL MD] - Follow up as needed JEVON MILLER MD [ACTIVE STAFF] - Follow up as needed Mode of Arrival: Wheelchair TRAVEL OUTSIDE OF THE [place] IN LAST 30 DAYS: No - HPI Notes: 24-year-old female presents to the emergency room today with left lower quadrant right lower quadrant quadrant abdominal pain, nausea and vomiting that started last night. Patient has not tried any [id number] medications. patient reports that her last bowel movement was yesterday, no melena. Reports pain has been constant. Patient did take a trazodone yesterday for the pain, she states this did not help her pain and she is not sure if this made it worse. Reports her last menstrual cycle was 05/31/2020. Denies any vaginal discharge or vaginal bleeding. Reports pain is 4 out of 5, sharp and stabbing. Patient states she has not been eating but has been trying to sip on drinks. Denies f maye, chills, chest pain,palpitations, shortness of breath, dyspnea, diarrhea, hematuria,blurred vision, double vision, loss of vision, speech changes, LH, dizziness, syncope, headaches, wheezing, ST, URI, neck pain, weakness, bowel or bladder dysfunction, saddle anesthesia, numbness or tingling in bilateral upper or lower extremities equally, muscle paralysis, weakness in bilateral upper or lower extremities equally or rash. Denies IV drug use. - Related Data Allergies/Adverse Reactions: No Known Allergies Allergy (Verified 06/22/20 13:11) Past Medical History - General Information source: Patient - Social History Smoking Status: Never Smoker Frequency of alcohol use: None Drug Abuse: None Family History: Reviewed & Not Pertinent Patient has homicidal ideation: No Neurological Medical History: Reports: Hx Migraine Renal/ Medical History: Denies: Hx Peritoneal Dialysis Past Surgical History: Reports: Hx Section - x1, Hx Dilation and Curettage Review of Systems - Review of Systems Constitutional: No symptoms reported EENT: No symptoms reported Cardiovascular: No symptoms reported Respiratory: No symptoms reported Gastrointestinal: See HPI Genitourinary: No symptoms reported Female Genitourinary: No symptoms reported Musculoskeletal: No symptoms reported Skin: No symptoms reported Hematologic/Lymphatic: No symptoms reported Neurological/Psychological: No symptoms reported Physical Exam - Vital signs Vitals: Temp Pulse BP Pulse Ox 97.7 F 82 122/77 100 06/22/20 13:23 06/22/20 13:23 06/22/20 13:23 06/22/20 13:23 - Notes Notes: MEDICATIONS: I agree with the patient medications as charted by the RN. ALLERGIES: I agree with the allergies as charted by the RN. PAST MEDICAL HISTORY/PAST SURGICAL HISTORY: Reviewed and agree as charted by RN. SOCIAL HISTORY: Reviewed and agree as charted by RN. FAMILY HISTORY: No significant familial comorbid conditions directly related to patient complaint EXAM: Reviewed vital signs as charted by RN. PHYSICAL EXAMINATION: reviewed vital signs by RN GENERAL: Well-appearing, well-nourished and in no acute distress. HEAD: Atraumatic, normocephalic. EYES: Pupils equal round and reactive to light, extraocular movements intact, conjunctiva are normal. ENT: Nares patent, oropharynx clear without exudates. Moist mucous membranes. NECK: Normal range of motion, supple without lymphadenopathy LUNGS: Breath sounds clear to auscultation bilaterally and equal. No wheezes rales or rhonchi. HEART: Regular rate and rhythm without murmurs ABDOMEN: Soft, left lower quadrant, right lower quadrant tenderness on palpation nondistended abdomen. No guarding, no rebound. No masses appreciated. No CVA tenderness appreciated bilaterally Female : deferred Musculoskeletal: Normal range of motion, no pitting or edema. No cyanosis. NEUROLOGICAL: Cranial nerves grossly intact. Normal speech, normal gait. Normal sensory, motor exams PSYCH: Normal mood, normal affect. SKIN: Warm, Dry, normal turgor, no rashes or lesions noted. Course - Re-evaluation Re-evalutation: 06/22/20 18:31 Afebrile vital stable no distress. Nurses notes reviewed. CBC negative for leukocytosis or anemia, CMP negative for medical renal dysfunction, no electrolyte disturbances. Serum hCG negative. Urinalysis does show hematuria and ketones. Patient did receive a liter of IV fluids, CT abdomen pelvis with IV and oral contrast was unremarkable, appendix was normal. Discussed with patient that she does need follow-up with merchandising representative as well as her primary care provider in the next 24 to 48 hours. We will send home with oral Zofran, take as needed. Increase oral hydration. On reevaluation patient states she is feeling much better, she states she feels back to "normal". work note has been given. after performing a Medical Screening Examination, I estimate there is LOW risk for ACUTE APPENDICITIS, BOWEL OBSTRUCTION, ACUTE CHOLECYSTITIS, PERFORATED DIVERTICULITIS, INCARCERATED HERNIA, PANCREATITIS, PELVIC INFLAMMATORY DISEASE, PERFORATED ULCER, ECTOPIC , or TUBO- OVARIAN ABSCESS, thus I consider the discharge disposition reasonable. Also, there is no evidence or peritonitis, sepsis, or toxicity. I have reevaluated this patient multiple times and no significant life threatening changes are noted. The patient and I have discussed the diagnosis and risks, and we agree with discharging home with close follow-up with the understanding that symptoms and presentations can change. We also discussed returning to the Emergency Department immediately if new or worsening symptoms occur. We have discussed the symptoms which are most concerning (e.g., bloody stool, fever, changing or worsening pain, vomiting) that necessitate immediate return. 06/22/20 18:57 - Vital Signs Vital signs: Temp Pulse Resp BP Pulse Ox 98.0 F 82 18 124/69 98 06/22/20 18:38 06/22/20 18:38 06/22/20 18:38 06/22/20 18:38 06/22/20 18:38 - Laboratory Result Diagrams: 06/22/20 13:38 06/22/20 13:38 Laboratory results interpreted by me: 06/22/20 06/22/20 06/22/20 13:38 13:38 16:12 Hgb 11.9 L MCV 71 L MCH 23.3 L Seg Neutrophils % 78.9 H Chloride 109 H Carbon Dioxide 19 L Glucose 135 H Urine Protein 100 H Urine Ketones 20 H Urine Blood LARGE H Discharge - Discharge Clinical Impression: Nausea and vomiting, Abdominal pain Condition: Stable Disposition: HOME, SELF-CARE Instructions: Abdominal Pain ([facility]), Antinausea Medication ([facility]), Intravenous (IV) Fluids ([facility]), Vomiting ([facility]) Additional Instructions: CT of your abdomen pelvis was negative today, your appendix was normal. All of your blood work was normal today. Your urine did show a little bit of blood and a little bit of dehydration. You did receive IV hydration. Please follow-up with merchandising representative as well as your primary care provider within the next 24 to 48 hours. Return immediately for any new or worsening symptoms. Follow up with primary care provider, call tomorrow to make followup appointment. Prescriptions: Ondansetron [Zofran Odt 4 mg Tablet] 1 - 2 tab PO Q4H PRN #15 tab.rapdis PRN Reason: For Nausea/Vomiting Forms: Return to Work Referrals: MARY WEST MD [NO LOCAL MD] - Follow up as needed JEVON MILLER MD [ACTIVE STAFF] - Follow up as needed
[2020-06-22 13:57] LABS: ABSOLUTE LYMPHOCYTES (AUTO) 1.6 10^3/uL (0.5-4.7); ABSOLUTE MONOCYTES (AUTO) 0.4 10^3/uL (0.1-1.4); ABSOLUTE NEUT (AUTO) 7.6 10^3/uL (1.7-8.2); BASOPHILS % (AUTO) 0.3 % (0-2); EOSINOPHILS % (AUTO) 0.3 % (0-6); HEMATOCRIT 36.2 % (36.0-47.0); HEMOGLOBIN 11.9 g/dL (12.0-15.5); LYMPHOCYTES % (AUTO) 16.3 % (13-45); MEAN CORPUSCULAR HEMOGLOBIN 23.3 pg (27.0-33.4); MEAN CORPUSCULAR VOLUME 71 fl (80-97); MONOCYTES % (AUTO) 4.2 % (3-13); PLATELET COUNT 291 10^3/uL (150-450); RED BLOOD COUNT 5.11 10^6/uL (3.72-5.28); SEGMENTED NEUTROPHILS % (AUTO) 78.9 % (42-78); TOTAL CELLS COUNTED % (AUTO) 100 %; WHITE BLOOD COUNT 9.6 10^3/uL (4.0-10.5)
[2020-06-22] MEDS ORDERED: ONDANSETRON HCL INJ/PF 4 MG/2 ML SDV IV ONE (14:20)
[2020-06-22 14:26] LABS: ALBUMIN 4.3 g/dL (3.5-5.0); ALKALINE PHOSPHATASE 97 U/L (38-126); ANION GAP 13 (5-19); ASPARTATE AMINO TRANSFERASE 17 U/L (14-36); BILIRUBIN,TOTAL 0.6 mg/dL (0.2-1.3); BLOOD UREA NITROGEN 8 mg/dL (7-20); CALCIUM 9.7 mg/dL (8.4-10.2); CARBON DIOXIDE 19 mmol/L (22-30); CHLORIDE 109 mmol/L (98-107); GLUCOSE 135 mg/dL (75-110); POTASSIUM 3.7 mmol/L (3.6-5.0); TOTAL PROTEIN 7.5 g/dL (6.3-8.2)
[2020-06-22 16:38] LABS: APPEARANCE,URINE SLIGHTLY-CLOUDY; BILIRUBIN,URINE NEGATIVE (NEGATIVE); COLOR,URINE YELLOW; GLUCOSE, URINE NEGATIVE (NEGATIVE); KETONES,URINE 20 mg/dL (NEGATIVE); LEUKOCYTE ESTERASE,URINE NEGATIVE (NEGATIVE); NITRITE,URINE NEGATIVE (NEGATIVE); PROTEIN,URINE 100 mg/dL (NEGATIVE); URINE SPECIFIC GRAVITY 1.013; UROBILINOGEN,URINE NEGATIVE mg/dL (<2.0)
--- NOTE | 2020-06-22 18:01 | RADIOLOGY REPORT (SQ) ---
EXAM DESCRIPTION: CT ABD/PELVIS WITH IV ORAL IMAGES COMPLETED DATE/TIME: 06/22/2020 5:34 pm REASON FOR STUDY: RLQ abd pain, n/v x 1 day COMPARISON: None. TECHNIQUE: CT scan of the abdomen and pelvis performed using helical scanning technique with dynamic intravenous contrast injection. Oral contrast. Images reviewed with lung, soft tissue, and bone win dows. Reconstructed coronal and sagittal MPR images reviewed. Delayed images for evaluation of the ur inary system also acquired. All images stored on PACS. All CT scanners at this facility use dose modulation, iterative reconstruction, and/or weight based d osing when appropriate to reduce radiation dose to as low as reasonably achievable (ALARA). [facility]: Dose Right [facility]: CareDose [facility]: Dose Right [facility]: Teradose 4D [facility]: DCWafers CONTRAST TYPE AND DOSE: contrast/concentration: Isovue 350.00 mmol/ml; Total Contrast Delivered: 71. 0 ml; Total Saline Delivered: 33.4 ml RENAL FUNCTION: None required. The patient is less than 50 years old. RADIATION DOSE: CT Rad equipment meets quality standard of care and radiation dose reduction techniq ues were employed. CTDIvol: 5.4 - 6.7 mGy. DLP: 617 mGy-cm.. LIMITATIONS: None. FINDINGS: LOWER CHEST: No significant findings. No nodules or infiltrates. LIVER: Normal size. No masses. No dilated ducts. SPLEEN: Normal size. No focal lesions. PANCREAS: No masses. No significant calcifications. No adjacent inflammation or peripancreatic fluid collections. Pancreatic duct not dilated. GALLBLADDER: No identified stones by CT criteria. No inflammatory changes to suggest cholecystitis. ADRENAL GLANDS: No significant masses or asymmetry. RIGHT KIDNEY AND URETER: No solid masses. No significant calcifications. No hydronephrosis or hyd roureter. LEFT KIDNEY AND URETER: No solid masses. No significant calcifications. No hydronephrosis or hydr oureter. AORTA AND VESSELS: No aneurysm. No dissection. Renal arteries, SMA, celiac without stenosis. RETROPERITONEUM: No retroperitoneal adenopathy, hemorrhage or masses. BOWEL AND PERITONEAL CAVITY: No masses or inflammatory changes. No free fluid or peritoneal masses. APPENDIX: Normal. PELVIS: No mass. No free fluid. Normal bladder. ABDOMINAL WALL: No masses. No hernias. BONES: No significant or acute findings. OTHER: No other significant finding. IMPRESSION: NO SIGNIFICANT OR ACUTE FINDING IN THE ABDOMEN OR PELVIS ON CT SCAN WITH IV CONTRAST. TECHNICAL DOCUMENTATION: JOB ID: [id number] Quality ID # [id number]: Final reports with documentation of one or more dose reduction techniques (e.g., Au tomated exposure control, adjustment of the mA and/or kV according to patient size, use of iterative reconstruction technique) 2010 [id number]- All Rights Reserved Reading location - IP/workstation name: [email or web address]
[2020-06-22 18:39] VITALS: BP 124/69
== END 2020-06-22 18:59 | disposition home or self-care (01) ==
LOC: ER 13:07
DX: R11.2 Nausea with vomiting, unspecified (principal); R10.30 Lower abdominal pain, unspecified
CPT/HCPCS: 99285; 96361; 96374; 36415; 87086; 83690; 84703; 85025; 80053; 81001; 74177; S0119; J2405; J7030